=== PATIENT | male | born 1935 | race Caucasian/White ===

== ENCOUNTER 2016-08-01 06:53 | Emergency (ER) | payer MEDICARE, BC ==
[2016-08-01] MEDS ORDERED: Ketorolac INJ* 30 MG/ML 1 ML VIAL IV ONE (07:32)
[2016-08-01 08:39] LABS: Hematocrit 45 % (42-52); Hemoglobin 15.3 g/dl (14.0-18.0); Mean Corpuscular HGB Conc 34 g/dl (31-36); Mean Corpuscular Hemoglobin 31 pg (27-31); Mean Corpuscular Volume 91 fL (80-94); Mean Platelet Volume 7 um3 (7.4-10.4); Red Blood Count 4.93 10^6/ul (4.0-5.4); Red Cell Distribution Width 14 % (10.5-15); White Blood Count 7.8 10^3/ul (3.5-10.8)
[2016-08-01 09:00] LABS: Albumin 3.8 g/dL (3.2-5.2); BUN/Creatinine Ratio 17.1 (8-20); C Reactive Protein 7.72 mg/L (< 5.00); Calcium 8.9 mg/dL (8.6-10.3); EGFR Non-African American 63.7 (>60); Globulin 2.8 g/dL (2-4); Potassium 4.4 mmol/L (3.5-5.0); Total Bilirubin 0.7 mg/dL (0.2-1.0); Total Protein 6.6 g/dL (6.4-8.9); Uric Acid 6.7 mg/dL (4.4-7.6)
[2016-08-01 09:38] VITALS: BP 141/76
--- NOTE | 2016-08-01 12:55 | ED ---
Radu Fortune Auryana, scribed for Norman Dimas MD on 08/01/16 at 0732 . Lower Extremity - HPI Summary HPI Summary: 80 year old male presents with left foot pain starting at 02:00/03:00 this morning. Patient states that he awoke from sleep with intermittent sharp left foot pain. He also reports pain with palpation of the dorsal aspect of the foot. He denies any fever, chills. No history of trauma, heavy lifting, or fallen objects to left foot. [employer] ibuprofen - 02:00/03:00. PMHx is significant for hip replacement, shoulder surgery, L knee replacement, and BPH - with TURP x3. No history of gout. FHx is significant for colon CA. - History of Current Complaint Chief Complaint: EDExtremityLower Stated Complaint: LT FOOT PAIN Time Seen by Provider: 08/01/16 07:19 Hx Obtained From: Patient Mechanism Of Injury: Unknown Onset of Pain: Immediate Onset/Duration: Hours - starting at 02:00/ 03:00 Severity Initially: Severe Severity Currently: Severe Pain Intensity: 10 Pain Scale Used: 0-10 Numeric Timing: Constant Location: Is Discrete @ - left foot Character Of Pain: Sharp - with tender dorsal aspect of left foot Aggravating Factor(s): Other - touch - Allergies/Home Medications Allergies/Adverse Reactions: Allergies Allergy/AdvReac Type Severity Reaction Status Date / Time RAW OYSTERS Allergy Nausea And Uncoded 01/19/16 14:18 Vomiting PMH/Surg Hx/FS Hx/Imm Hx Endocrine/Hematology History: Denies: Hx Diabetes Cardiovascular History: Reports: Hx Hypertension Denies: Hx Congestive Heart Failure, Hx Hypercholesterolemia, Hx Pacemaker/ ICD, Hx Peripheral Vascular Disease Respiratory History: Denies: Hx Asthma GI History: Reports: Hx Gastroesophageal Reflux Disease, Hx Hiatal Hernia History: Reports: Other Problems/Disorders - BPH, TURP X2 Denies: Hx Dialysis, Hx Renal Disease Musculoskeletal History: Denies: Hx Arthritis, Hx Rheumatoid Arthritis, Hx Osteoporosis Sensory History: Reports: Hx Hearing Aid Denies: Hx Cataracts, Hx Contacts or Glasses, Hx Glaucoma Opthamlomology History: Denies: Hx Cataracts, Hx Contacts or Glasses, Hx Glaucoma Neurological History: Denies: Hx Headaches, Hx Seizures, Hx Transient Ischemic Attacks (TIA) Psychiatric History: Denies: Hx Anxiety, Hx Depression, Hx Panic Disorder - Surgical History Surgery Procedure, Year, and Place: LEFT KNEE. PROSTATE X 3,. RIGHT HIP REPLACEMENT SEPTEMBER 2012. GHASSAN CATARACT. RIGHT SHOULDER ARTHROSCOPIC SX DEC 2014 Hx Anesthesia Reactions: No - Immunization History Date of Tetanus Vaccine: unkown Infectious Disease History: No Infectious Disease History: Denies: History Other Infectious Disease, Traveled Outside the [place] in Last 30 Days - Family History Known Family History: Positive: Diabetes, Other - cancer - Social History Occupation: Retired Lives: Alone Alcohol Use: Weekly Alcohol Amount: 4-5/WEEK Hx Substance Use: No Substance Use Type: Reports: None Hx Tobacco Use: No Smoking Status (MU): Former Smoker Length of Time of Smoking/Using Tobacco: 20 YRS Have You Smoked in the Last Year: No Review of Systems Constitutional: Negative Negative: Fever, Chills Eyes: Negative ENT: Negative Cardiovascular: Negative Respiratory: Negative Gastrointestinal: Negative Genitourinary: Negative Positive: Arthralgia - left foot Skin: Negative Neurological: Negative Psychological: Normal All Other Systems Reviewed And Are Negative: Yes Physical Exam - Summary Physical Exam Summary: VITAL SIGNS: Reviewed. GENERAL: ~Patient is a well developed and nourished male who is lying comfortable in the stretcher. ~Patient is not in any acute respiratory distress. HEAD AND FACE: No signs of trauma. ~No ecchymosis, hematomas or skull depressions. No sinus tenderness. EYES: PERRLA, EOMI x 2, No injected conjunctiva, no nystagmus. EARS: Hearing grossly intact. Ear canals and tympanic membranes are within normal limits. MOUTH: Oropharynx within normal limits. NECK: Supple, trachea is midline, no adenopathy, no JVD, no carotid bruit, no c- spine tenderness, neck with full ROM. CHEST: Symmetric, no tenderness at palpation LUNGS: Clear to auscultation bilaterally. No wheezing or crackles. CVS: Regular rate and rhythm, S1 and S2 present, no murmurs or gallops appreciated. ABDOMEN: Soft, non-tender. No signs of distention. No rebound no guarding, and no masses palpated. Bowel sounds are normal. EXTREMITIES: FROM in all major joints, no cyanosis or clubbing. Good pulses. Dorsal aspect of the left foot - very tender on palpation. Unable to assess capillary refill due to onychomycosis. Bilateral 1+ edema at the left foot. NEURO: Alert and oriented x 3. No acute neurological deficits. Speech is normal and follows commands. SKIN: Dry and warm. erythema at the dorsal aspect of the left foot. Triage Information Reviewed: Yes Vital Signs On Initial Exam: Initial Vitals Temp Pulse Resp BP Pulse Ox 97.0 F 76 16 157/73 99 08/01/16 06:55 08/01/16 06:55 08/01/16 06:55 08/01/16 06:55 08/01/16 06:55 Vital Signs Reviewed: Yes Diagnostics - Vital Signs Vital Signs Temp Pulse Resp BP Pulse Ox 08/01/16 06:55 97.0 F 76 16 157/73 99 - Laboratory Lab Results: Lab Results 08/01/16 08/01/16 08/01/16 Range/Units 08:26 08:26 08:26 WBC 7.8 (3.5-10.8) 10^3/ul RBC 4.93 (4.0-5.4) 10^6/ul Hgb 15.3 (14.0-18.0) g/dl Hct 45 (42-52) % MCV 91 (80-94) fL MCH 31 (27-31) pg MCHC 34 (31-36) g/dl RDW 14 (10.5-15) % Plt Count 229 (150-450) 10^3/ul MPV 7 L (7.4-10.4) um3 Neut % (Auto) 65.0 (38-83) % Lymph % (Auto) 21.3 L (25-47) % [place] % (Auto) 11.1 H (1-9) % Eos % (Auto) 2.2 (0-6) % Baso % (Auto) 0.4 (0-2) % Absolute Neuts (auto) 5.1 (1.5-7.7) 10^3/ul Absolute Lymphs (auto) 1.7 (1.0-4.8) 10^3/ul Absolute Monos (auto) 0.9 H (0-0.8) 10^3/ul Absolute Eos (auto) 0.2 (0-0.6) 10^3/ul Absolute Basos (auto) 0 (0-0.2) 10^3/ul Absolute Nucleated RBC 0 10^3/ul Nucleated RBC % 0 Sodium 139 (133-145) mmol/L Potassium 4.4 (3.5-5.0) mmol/L Chloride 102 (101-111) mmol/L Carbon Dioxide 28 (22-32) mmol/L Anion Gap 9 (2-11) mmol/L BUN 19 (6-24) mg/dL Creatinine 1.11 (0.67-1.17) mg/dL Est GFR ( Amer) 82.0 (>60) Est GFR (Non-Af Amer) 63.7 (>60) BUN/Creatinine Ratio 17.1 (8-20) Glucose 107 H (70-100) mg/dL Lactic Acid 1.5 (0.5-2.0) mmol/L Uric Acid 6.7 (4.4-7.6) mg/dL Calcium 8.9 (8.6-10.3) mg/dL Total Bilirubin 0.70 (0.2-1.0) mg/dL AST 20 (13-39) U/L ALT 17 (7-52) U/L Alkaline Phosphatase 75 (34-104) U/L C-Reactive Protein 7.72 H (< 5.00) mg/L Total Protein 6.6 (6.4-8.9) g/dL Albumin 3.8 (3.2-5.2) g/dL Globulin 2.8 (2-4) g/dL Albumin/Globulin Ratio 1.4 (1-3) Result Diagrams: 08/01/16 08:26 08/01/16 08:26 Lab Statement: Any lab studies that have been ordered have been reviewed, and results considered in the medical decision making process. Re-Evaluation - Re-Evaluation First Eval Re-Evaluation Time: 09:10 - will discharge patient with proper management for symptoms Change: Improved Lower Extremity Course/Dx - Course Course Of Treatment: 80 year old male presents with left foot pain starting at 02:00/03:00 this morning. Patient states that he awoke from sleep with intermittent sharp left foot pain. He also reports pain with palpation of the dorsal aspect of the foot. He denies any fever, chills. No history of trauma, heavy lifting, or fallen objects to left foot. [employer] ibuprofen - 02:00/03:00. PMHx is significant for hip replacement, shoulder surgery, L knee replacement, and BPH - with TURP x3. No history of gout. FHx is significant for colon CA. Assessment/Plan: Test results WNL except for glucose 107 and CRP 7.72 . In ED course, patient was given Toradol and symptoms completely resolved. Offered XR and declined since he does not have an history of trauma. Therefore, believe patient has an acute gout v.s. mild cellulitis. Since the patient has severe onychomycosis, therefore the patient was given keflex and indocin. 80 year old male presents with left foot pain starting at 02:00/03:00 this morning. Patient states that he awoke from sleep with intermittent sharp left foot pain. He also reports pain with palpation of the dorsal aspect of the foot. He denies any fever, chills. No history of trauma, heavy lifting, or fallen objects to left foot. [employer] ibuprofen - 02:00/03:00. PMHx is significant for hip replacement, shoulder surgery, L knee replacement, and BPH - with TURP x3. No history of gout. FHx is significant for colon CA. Patient was advised to follow up with PCP within 2 days. He was advised to return to ED if he is unable to get an appointment with PCP or develops increased pain, fever, chills, or is unable to ambulate. He understands all of this. Patient is stable and A&O X3 - left ED ambulating without any limp. - Diagnoses Differential Diagnosis/HQI/PQRI: Positive: Cellulitis, Gout, Infection Provider Diagnoses: Gout, Cellulitis Discharge - Discharge Plan Condition: Stable Disposition: HOME Prescriptions: Cephalexin CAP* [Keflex CAP*] 500 mg PO TID #28 cap Indomethacin CAP* [Indocin CAP*] 50 mg PO TID PRN #30 cap PRN Reason: Pain Patient Education Materials: Gout (ED), Cellulitis (ED) Referrals: Bret Johnson MD [Primary Care Provider] - 3 Days The documentation as recorded by the Radu queen Auryana accurately reflects the service I personally performed and the decisions made by , Norman Dimas MD.
== END 2016-08-01 09:26 | disposition home or self-care (01) ==
LOC: ED 06:53
DX: L03.90 Cellulitis, unspecified (principal); M10.9 Gout, unspecified; M79.672 Pain in left foot; Z87.891 Personal history of nicotine dependence
CPT/HCPCS: 36415; 80053; 83605; 84550; 85025; 86140; 99282; J1885

== ENCOUNTER 2017-07-18 15:42 | Emergency (ER) | payer MEDICARE, BC, OTHER ==
[2017-07-18] MEDS ORDERED: Tetan/Diph/Pertus SYR(Tdap)* 0.5 ML SYR(BOOSTRIX) use SYR IM ONE (16:05)
--- NOTE | 2017-07-18 17:23 | ED ---
Laceration/Wound HPI - HPI Summary HPI Summary: Complains of superior head laceration status post walking into overhanging tree branch while mowing the lawn today. Denies LOC, neck pain, trauma to the face/ tongue/teeth/nose, dizziness, CUENCA, vision change, N/V. No anti-coag. Bleeding controlled. Tetanus unknown - History of Current Complaint Stated Complaint: HEAD LAC Time Seen by Provider: 07/18/17 16:43 Hx Obtained From: Patient, Family/Die Finisher Mechanism of Injury: Sharp/Blunt Trauma Aggravating: Nothing Alleviating: Nothing Onset Severity: Mild Current Severity: Mild Pain Intensity: 1 Pain Scale Used: 0-10 Numeric - Allergy/Home Medications Allergies/Adverse Reactions: Allergies Allergy/AdvReac Type Severity Reaction Status Date / Time RAW OYSTERS Allergy Nausea And Uncoded 07/18/17 15:56 Vomiting PMH/Surg Hx/FS Hx/Imm Hx Endocrine/Hematology History: Denies: Hx Diabetes Cardiovascular History: Reports: Hx Hypertension Denies: Hx Congestive Heart Failure, Hx Hypercholesterolemia, Hx Pacemaker/ ICD, Hx Peripheral Vascular Disease Respiratory History: Denies: Hx Asthma GI History: Reports: Hx Gastroesophageal Reflux Disease, Hx Hiatal Hernia History: Reports: Other Problems/Disorders - BPH, TURP X2 Denies: Hx Dialysis, Hx Renal Disease Musculoskeletal History: Denies: Hx Arthritis, Hx Rheumatoid Arthritis, Hx Osteoporosis Sensory History: Reports: Hx Hearing Aid Denies: Hx Cataracts, Hx Contacts or Glasses, Hx Glaucoma Opthamlomology History: Denies: Hx Cataracts, Hx Contacts or Glasses, Hx Glaucoma Neurological History: Denies: Hx Headaches, Hx Seizures, Hx Transient Ischemic Attacks (TIA) Psychiatric History: Denies: Hx Anxiety, Hx Depression, Hx Panic Disorder - Surgical History Surgery Procedure, Year, and Place: LEFT KNEE. PROSTATE X 3,. RIGHT HIP REPLACEMENT SEPTEMBER 2012. GHASSAN CATARACT. RIGHT SHOULDER ARTHROSCOPIC SX DEC 2014 Hx Anesthesia Reactions: No - Immunization History Date of Tetanus Vaccine: unkown Infectious Disease History: No Infectious Disease History: Denies: History Other Infectious Disease, Traveled Outside the [place] in Last 30 Days - Family History Known Family History: Positive: Diabetes, Other - cancer - Social History Alcohol Use: Weekly Alcohol Amount: 4-5/WEEK Hx Substance Use: No Substance Use Type: Reports: None Hx Tobacco Use: No Smoking Status (MU): Former Smoker Length of Time of Smoking/Using Tobacco: 20 YRS Have You Smoked in the Last Year: No Review of Systems Constitutional: Negative Eyes: Negative ENT: Negative Cardiovascular: Negative Respiratory: Negative Gastrointestinal: Negative Genitourinary: Negative Musculoskeletal: Negative Skin: Negative Neurological: Negative Psychological: Normal All Other Systems Reviewed And Are Negative: Yes Physical Exam - Summary Physical Exam Summary: 6 cm x 1 cm laceration on superior head posteriorly. No trauma, ecchymosis, swelling, deformity to face, nose, teeth, tongue, neck noted. Neck full range of motion. Jaw full range of motion. Neuro exam normal. Triage Information Reviewed: Yes Vital Signs On Initial Exam: Initial Vitals Temp Pulse Resp BP Pulse Ox 98.1 F 91 18 140/101 93 07/18/17 15:53 07/18/17 15:53 07/18/17 15:53 07/18/17 15:53 07/18/17 15:53 Vital Signs Reviewed: Yes Appearance: Positive: Well-Appearing Skin: Positive: Warm Head/Face: Positive: Normal Head/Face Inspection Eyes: Positive: Normal Neck: Positive: Supple Respiratory/Lung Sounds: Positive: Clear to Auscultation Cardiovascular: Positive: Normal Abdomen Description: Positive: Nontender Musculoskeletal: Positive: Normal Neurological: Positive: Normal Psychiatric: Positive: Normal AVPU Assessment: Alert - Jazmine Coma Scale Best Eye Response: 4 - Spontaneous Best Motor Response: 6 - Obeys Commands Best Verbal Response: 5 - Oriented Coma Scale Total: 15 Procedures - Laceration/Wound Repair 1 Location: head Description: Linear Length, Depth and Shape: 6cm x 1cm, linear Betadine Prep?: Yes Irrigated w/ Saline (ccs): 50 - saline +betadine Laceration/Wound Explored: clean Closure: Single Layer, [place] #__ - 8 Debridement: minimal Layer Closure?: No Diagnostics - Vital Signs Vital Signs Temp Pulse Resp BP Pulse Ox 07/18/17 15:53 98.1 F 91 18 140/101 93 - Laboratory Lab Statement: Any lab studies that have been ordered have been reviewed, and results considered in the medical decision making process. Laceration Repair Course/Dx - Course Course Of Treatment: LAC, 8 levi, out in 10 days, prophylactic antibiotics. Non-immunocompromised. pt refused tetanus, states he has appt at pcp for same right after todays visit to ed - Clinical Impression Provider Diagnoses: Laceration Discharge - Sign-Out/Discharge Documenting (check all that apply): Discharge/Admit/Transfer - Discharge Plan Condition: Stable Disposition: HOME Prescriptions: Cephalexin CAP* [Keflex CAP*] 500 mg PO TID 7 Days #21 cap Cephalexin CAP* [Keflex CAP*] 500 mg PO TID 7 Days #21 cap Patient Education Materials: Laceration (ED), Staple Care (ED) Referrals: Bret Johnson MD [Primary Care Provider] - Additional Instructions: Levi out in 10 days. May wash wound with warm running water and soap. Do not submerge underwater. Return to the ED for any new or worsening symptoms - Billing Disposition and Condition Condition: STABLE Disposition: HOME
[2017-07-18 18:11] VITALS: BP 138/82
== END 2017-07-18 18:09 | disposition home or self-care (01) ==
LOC: ED 15:42
DX: S01.01XA Laceration without foreign body of scalp, initial encounter (principal); W22.8XXA Striking against or struck by other objects, initial encounter; Y93.H9 Activity, other involving exterior property and land maintenance, building and construction; Y92.096 Garden or yard of other non-institutional residence as the place of occurrence of the external cause; I10 Essential (primary) hypertension; K21.9 Gastro-esophageal reflux disease without esophagitis; K44.9 Diaphragmatic hernia without obstruction or gangrene; N40.0 Benign prostatic hyperplasia without lower urinary tract symptoms; Z96.641 Presence of right artificial hip joint; Z87.891 Personal history of nicotine dependence
CPT/HCPCS: 12002; 99282

== ENCOUNTER 2017-08-30 15:29 | Emergency (ER) | payer MEDICARE, BC ==
[2017-08-30 15:40] VITALS: BP 152/96
--- NOTE | 2017-08-30 18:28 | UC ---
Diomedes Fortune Jade, scribed for Kameron Mccall MD on 08/30/17 at 1625 . Ear Complaint HPI - HPI Summary HPI Summary: Pt is an 81 y/o male who presents to [facility] c/o ear area pain. He states that he noticed the pain this morning that he initially thought was TMJ, and that his left ear area is swollen. There is not constant pain, but 5/10 pain with palpation that is worsening. Pt denies any sore throat or ear blockage. Pt has hearing aids. - History of Current Complaint Chief Complaint: UCSkin Stated Complaint: SKIN COMPLAINT Time Seen by Provider: 08/30/17 16:10 Hx Obtained From: Patient Onset/Duration: Sudden Onset, Lasting Hours - Today, Worse Since Severity Currently: Moderate Pain Intensity: 5 Pain Scale Used: 0-10 Numeric Aggravating Factors: Other - Pressing Alleviating Factors: Nothing Associated Signs/Symptoms: Negative: Hearing Loss, Trauma to Ear - Allergies/Home Medications Allergies/Adverse Reactions: Allergies Allergy/AdvReac Type Severity Reaction Status Date / Time RAW OYSTERS Allergy Nausea And Uncoded 08/30/17 15:40 Vomiting PMH/Surg Hx/FS Hx/Imm Hx Endocrine History: Other - hypercholesterolemia Other Endocrine History: . Cardiovascular History: Hypertension GI/ History: Gastroesophageal Reflux, Other - Colon polyps Other GI/ History: . - Surgical History Surgical History: Yes Surgery Procedure, Year, and Place: LEFT KNEE. PROSTATE X 3,. RIGHT HIP REPLACEMENT SEPTEMBER 2012. GHASSAN CATARACT. RIGHT SHOULDER ARTHROSCOPIC SX DEC 2014 - Family History Known Family History: Positive: Diabetes, Other - colon cancer - Social History Alcohol Use: Weekly Alcohol Amount: 4-5/WEEK Substance Use Type: None Smoking Status (MU): Former Smoker Length of Time of Smoking/Using Tobacco: 20 YRS Have You Smoked in the Last Year: No When Did the Patient Quit Smoking/Using Tobacco: 35 YRS AGO Review of Systems Constitutional: Negative - Fever ENT: Negative - Sore throat, ear blockage, Other - Pain and swelling surrounding left ear All Other Systems Reviewed And Are Negative: Yes Physical Exam - Summary Physical Exam Summary: General: well-appearing, no pain distress Skin: warm, color reflects adequate perfusion, dry. No erythema of left jaw. Head: normal Eyes: EOMI, NUBIA ENT: normal. Partial plate in teeth. No obvious decay or swelling of teeth. TM normal. Neck: supple, nontender Respiratory: CTA, breath sounds present Cardiovascular: RRR Abdomen: soft, nontender Bowel: present Musculoskeletal: strength/ROM intact. Tenderness to palpation and swelling of angle of left jaw. Neurological: sensory/motor intact, A&O x3 Psychological: affect/mood appropriate Triage Information Reviewed: Yes Vital Signs: Initial Vital Signs Temp 98.5 F 08/30/17 15:36 Pulse 82 08/30/17 15:36 Resp 18 08/30/17 15:36 BP 152/96 08/30/17 15:36 Pulse Ox 98 08/30/17 15:36 Vital Signs Reviewed: Yes Ear Complaint Course/Dx - Course Course Of Treatment: Medications reviewed. Allergies noted. BP noted and advised to follow up with PCP. DISCUSSED TREATMENT WITH THE PATIENT AND THE NEED FOR REEVAL IF WORSE. - Differential Dx/Diagnosis Provider Diagnoses: LEFT Parotid duct obstructioN/sialoadentitis. HTN Discharge - Sign-Out/Discharge Documenting (check all that apply): Discharge/Admit/Transfer - Discharge - Discharge Plan Condition: Stable Disposition: HOME Prescriptions: Amoxicillin/Clavulanate TAB* [Augmentin TAB 875*] 875 mg PO BID #20 tab Patient Education Materials: Parotid Duct Obstruction (ED), Sialoadenitis (ED) Referrals: [facility] [Provider Group] Bret Johnson MD [Primary Care Provider] - Asher Hammond MD [Medical Doctor] - Additional Instructions: FOLLOW UP WITH YOUR PRIMARY CARE DOCTOR OR ENT. GET RECHECKED FOR ANY WORSENING OF YOUR CONDITION OR QUESTIONS OR CONCERNS. - Billing Disposition and Condition Condition: STABLE Disposition: Home The documentation as recorded by the Diomedes queen Jade accurately reflects the service I personally performed and the decisions made by me, Kameron Mccall MD.
== END 2017-08-30 16:33 | disposition home or self-care (01) ==
LOC: UCEAST 15:29
DX: K11.20 Sialoadenitis, unspecified (principal); K86.89 Other specified diseases of pancreas; I10 Essential (primary) hypertension; Z87.891 Personal history of nicotine dependence; K21.9 Gastro-esophageal reflux disease without esophagitis; E78.00 Pure hypercholesterolemia, unspecified
CPT/HCPCS: 99212; G0463

== ENCOUNTER → 2018-09-08 01:14 | Emergency (ER) | payer MEDICARE, BC ==
[~2018-09-08 01:14] MED LIST: Iohexol 300* (CONTRAST) 10 ML SDV IV ONE; Morphine 4 MG/ML VIAL (1 ml) 4 MG/ML VIAL IV ONE; NS 0.9% 1000 ML** 1,000 ML IV ONE; Ondansetron INJ* 2 MG/ML VIAL IV ONE
--- OUTSIDE RECORDS SUMMARY | 2018-09-08 01:35 | XMS REPORT | Continuity of Care Document ---
:1935 External Reference #:[id number] Author Name Pascual Dia, OD Address [address] [place] [address] Care Team Providers Name Role Phone Alex SAWYER, Bret Sanders Care Team Information Residential Substance Abuse Counselor Unavailable Bret Johnson MD Primary Care Physician Unavailable Payers Date Identification Numbers Payment Provider Subscriber Policy Number: [id number] Medicare [place] [facility] PayID: [id number] [address] [place] [address] Policy Number: [id number] [facility] PayID: [id number] [address] [place] [address] Problems Active Problems Provider Date Tear film insufficiency Ravinder Nelson M.D. 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 Onset: 03/24/2016 Nonexudative age-related macular degeneration Ravinder Nelson M.D. Onset: Presence of intraocular lens Ravinder Nelson M.D. Onset: 09/03/2015 Retinal drusen Ravinder Nelson M.D. Onset: 09/03/2015 Primary open-angle glaucoma, mild stage Ravinder Nelson M.D. Onset: 2014 Lens Replaced By Other Means Pascual Valladares O.D. Onset: 10/07/2014 Status Post Surgery Ravinder Nelson M.D. Onset: 09/24/2014 Nuclear senile cataract Ravinder Nelson M.D. Onset: 08/22/2014 Open-angle glaucoma Ravinder Nelson M.D. Onset: 08/22/2014 Family History Date Family Member(s) Observation Comments General Cancer General Heart Disease General Grandparent Father Cancer Mother Massive Cerebral Heme. Social History Type Date Description Comments Sex Unknown ETOH Use Currently consumes alcohol Tobacco Use Start: Unknown End: Unknown Patient is a former smoker Smoking Status Reviewed: 08/17/18 Patient is a former smoker Allergies, Adverse Reactions, Alerts Active Allergies Reaction Severity Comments Date NKDA 08/22/2014 Oysters 08/22/2014 Medications Active Medications SIG Qnty Indications Ordering Provider Date Latanoprost 1 drops both 7.5ml Pascual Dia, OD 07/23/2018 0.005% Solution eyes every night Timolol Maleate one drop twice 15ml Pascual Dia, OD 05/30/2018 0.5% a day left eye Solution Preservision Areds 1 by mouth H35.3131 Ravinder Nelson, 03/24/2016 Tablets twice a day M.D. Mens Multi Vitamin & Unknown Mineral Formula Tablets Triamterene/Hydrochloro Unknown thiazide 50-25mg Capsules Omeprazole Unknown 40mg Capsules DR Multi Vitamin Daily Unknown Tablets Glucosamine Chondroitin Unknown Complex Capsules Co-Enzyme Q-10 Unknown 30mg Capsules Aspir-81 once per day by Unknown 81mg Tablets DR mouth History Medications Timolol Maleate 1 drop left eye 30ml Ravinder Nelson, 05/11/2017 - 0.5% twice a day M.D. 05/30/2018 Solution Timolol Maleate 1 drops left 15ml H40.1131 Ravinder Nelson, 04/24/2017 - 0.5% eye twice a day M.D. 05/11/2017 Solution Latanoprost instill 1 drop 3units Ravinder Nelson, 05/26/2015 - 0.005% into both eyes M.D. 07/23/2018 Solution nightly Timolol Maleate 1 drops both 90units Ravinder Nelson, 10/01/2014 - 0.5% eyes twice a M.D. 10/28/2014 Solution day Please Disp A 90 Day Supply With 3 Refills Timolol Maleate 1 drops both 5ml Ravinder Nelson, 10/01/2014 - 0.5% eyes twice a M.D. 10/28/2014 Solution day Vigamox 1 drop drops 3ml Ravinder Nelson, 08/25/2014 - 0.5% Solution left eye four M.D. 10/07/2014 times a day Ketorolac 1 drops left 10ml Ravinder Nelson, 08/25/2014 - Tromethamine eye twice a day M.D. 10/28/2014 0.5% Solution Pred Forte 1 drops left 10ml Ravinder Nelson, 08/25/2014 - 1% eye four times M.D. 10/28/2014 Suspension a day Vital Signs Date Vital Result Comment 05/17/2018 9:56am Intraocular Pressure Right Eye 19 mmHg Intraocular Pressure Left Eye 18 mmHg 04/27/2018 2:22pm Intraocular Pressure Right Eye 15 mmHg Intraocular Pressure Left Eye 15 mmHg 12/25/2017 9:03am Intraocular Pressure Right Eye 15 mmHg Intraocular Pressure Left Eye 14 mmHg 09/11/2017 8:53am Intraocular Pressure Right Eye 16 mmHg Intraocular Pressure Left Eye 16 mmHg 05/11/2017 8:41am Intraocular Pressure Right Eye 17 mmHg Intraocular Pressure Left Eye 16 mmHg 04/24/2017 1:54pm Intraocular Pressure Right Eye 17 mmHg Intraocular Pressure Left Eye 23 mmHg 01/12/2017 1:30pm Intraocular Pressure Right Eye 15 mmHg Intraocular Pressure Left Eye 18 mmHg 09/22/2016 8:12am Intraocular Pressure Right Eye 16 mmHg Intraocular Pressure Left Eye 16 mmHg 06/23/2016 8:15am Intraocular Pressure Right Eye 18 mmHg Intraocular Pressure Left Eye 18 mmHg 03/24/2016 9:18am Intraocular Pressure Right Eye 17 mmHg Intraocular Pressure Left Eye 17 mmHg 12/09/2015 3:28pm Intraocular Pressure Right Eye 16 mmHg Intraocular Pressure Left Eye 16 mmHg 09/03/2015 8:17am Intraocular Pressure Right Eye 17 mmHg Intraocular Pressure Left Eye 18 mmHg 05/04/2015 8:00am Intraocular Pressure Right Eye 18 mmHg Intraocular Pressure Left Eye 17 mmHg 01/30/2015 8:56am Intraocular Pressure Right Eye 19 mmHg Intraocular Pressure Left Eye 20 mmHg 10/28/2014 11:08am Intraocular Pressure Right Eye 18 mmHg Intraocular Pressure Left Eye 19 mmHg 10/07/2014 9:58am Intraocular Pressure Right Eye 16 mmHg Intraocular Pressure Left Eye 21 mmHg 10/01/2014 9:00am Intraocular Pressure Right Eye 16 mmHg Intraocular Pressure Left Eye 31 mmHg 09/26/2014 2:07pm Intraocular Pressure Right Eye 17 mmHg Intraocular Pressure Left Eye 21 mmHg 09/24/2014 9:10am Intraocular Pressure Right Eye 33 mmHg 08/22/2014 8:40am Intraocular Pressure Right Eye 23 mmHg Intraocular Pressure Left Eye 24 mmHg Cornea Thickness Left Eye 610 m Cornea Thickness Right Eye 590 m Pachymetry adjusted IOP Right Eye -4 Pachymetry adjusted IOP Left Eye -3 Procedures Date Code Description Status 05/10/2018 93968 Remove Secondary Cataract, Laser (Yag) Completed 04/27/2018 95002 Oct, Optic Nerve Completed 04/27/2018 05325 Eye Exam Est Intermediate Completed 12/25/2017 93516 Visual Field Exam Extended, Unilateral Or Bilateral Completed 12/25/2017 74617 Eye Exam Est Intermediate Completed 09/11/2017 08749 Fundus Photography W/Interpretation & Report Completed 09/11/2017 01369 Eye Exam Est Intermediate Completed 04/24/2017 86195 Eye Exam Est Intermediate Completed 04/24/2017 12800 Oct, Optic Nerve Completed 01/12/2017 79264 Oct Retina Completed 01/12/2017 95468 Visual Field Exam Extended, Unilateral Or Bilateral Completed 01/12/2017 29422 Eye Exam Est Intermediate Completed 09/22/2016 21221 Fundus Photography W/Interpretation & Report Completed 09/22/2016 56157 Ophthalmoscopy Subsequent Completed 09/22/2016 00576 Eye Exam Est Comprehensive Completed 06/23/2016 66847 Eye Exam Est Intermediate Completed 03/24/2016 57141 Eye Exam Est Intermediate Completed 03/24/2016 72811 Oct, Optic Nerve Completed 12/09/2015 78896 Oct Retina Completed 12/09/2015 35069 Visual Field Exam Extended, Unilateral Or Bilateral Completed 12/09/2015 33442 Eye Exam Est Intermediate Completed 09/03/2015 47801 Fundus Photography W/Interpretation & Report Completed 09/03/2015 87227 Eye Exam Est Comprehensive Completed 05/04/2015 56423 Eye Exam Est Intermediate Completed 01/30/2015 70522 Eye Exam Est Intermediate Completed 01/30/2015 25515 Visual Field Exam Extended, Unilateral Or Bilateral Completed 01/30/2015 51338 Oct, Optic Nerve Completed 09/30/2014 87817 Extracapsular Cataract Extraction W/Intraocular Lens Completed 09/23/2014 55090 Extracapsular Cataract Extraction W/Intraocular Lens Completed 08/22/2014 15314 Fundus Photography W/Interpretation & Report Completed 08/22/2014 87276 Ophthalmic Biometry By Partial Coherence Interferometry Completed W/Intra 08/22/2014 96757 Gonioscopy Completed 08/22/2014 30748 Eye Exam New Comprehensive Completed 08/22/2014 55394 Corneal Pachymetry, Unilateral/Bilateral Completed Encounters Type Date Location Provider Dx Diagnosis Office Visit 05/11/2017 Main Office Ravinder Nelson, Z96.1 Presence of 8:45a M.D. intraocular lens H40.1131 Primary open-angle glaucoma, bilateral, mild stage H35.3131 Nexdtve age-related mclr degn, bilateral, early dry stage Plan of Treatment 08/17/2018 - Pascual Dia ODH40.1131 Primary open-angle glaucoma, bilateral, mild stageFollow up:3 MOS vf, SOONER PRN
--- NOTE | 2018-09-08 03:49 | ED ---
Adult Trauma - HPI Summary HPI Summary: This pt is an 82 y/[facility]o left sided chest pain s/p fall at 23:30 on 09/07/18. [place]. Denies LOC. Denies back pain, abd pain, headache, SOB. Per , pt vomited after driving back [place] from the [place]. Pt takes aspirin. Denies any other anticoagulants. - History of Current Complaint Chief Complaint: EDChestWallPain Stated Complaint: FALL PER PT Time Seen by Provider: 09/08/18 03:44 Hx Obtained From: Patient Mechanism of Injury: Fall Loss of Consciousness: no loss of consciousness Onset/Duration: Started Hours Ago, Still Present Onset of Pain: Immediate Current Severity: Severe Pain Intensity: 10 Pain Scale Used: 0-10 Numeric Location: Chest - left sided Aggravating Factor(s): Palpation Alleviating Factor(s): Rest Associated Signs & Symptoms: Positive: Chest Pain, Nausea/Vomiting - vomiting. Negative: SOB, Abdominal Pain, Fever, Loss of Consciousness, Other: - NEGATIVE: headache, back pain - Allergy/Home Medications Allergies/Adverse Reactions: Allergies Allergy/AdvReac Type Severity Reaction Status Date / Time RAW OYSTERS Allergy Nausea And Uncoded 08/08/18 13:46 Vomiting PMH/Surg Hx/FS Hx/Imm Hx Endocrine/Hematology History: Denies: Hx Diabetes Cardiovascular History: Reports: Hx Hypertension Denies: Hx Congestive Heart Failure, Hx Hypercholesterolemia, Hx Pacemaker/ ICD, Hx Peripheral Vascular Disease Respiratory History: Denies: Hx Asthma GI History: Reports: Hx Gastroesophageal Reflux Disease, Hx Hiatal Hernia History: Reports: Other Problems/Disorders - BPH, TURP X2 Denies: Hx Dialysis, Hx Renal Disease Musculoskeletal History: Denies: Hx Arthritis, Hx Rheumatoid Arthritis, Hx Osteoporosis Sensory History: Reports: Hx Hearing Aid Denies: Hx Cataracts, Hx Contacts or Glasses, Hx Glaucoma Opthamlomology History: Denies: Hx Cataracts, Hx Contacts or Glasses, Hx Glaucoma Neurological History: Denies: Hx Headaches, Hx Seizures, Hx Transient Ischemic Attacks (TIA) Psychiatric History: Denies: Hx Anxiety, Hx Depression, Hx Panic Disorder - Surgical History Surgery Procedure, Year, and Place: LEFT KNEE. PROSTATE X 3,. RIGHT HIP REPLACEMENT SEPTEMBER 2012. [place] CATARACT. RIGHT SHOULDER ARTHROSCOPIC SX DEC 2014 Hx Anesthesia Reactions: No - Immunization History Date of Tetanus Vaccine: unkown Infectious Disease History: No Infectious Disease History: Denies: History Other Infectious Disease, Traveled Outside the [place] in Last 30 Days - Family History Known Family History: Positive: Diabetes, Other - colon cancer - Social History Alcohol Use: Weekly Alcohol Amount: 4-5/WEEK Hx Substance Use: No Substance Use Type: Reports: None Hx Tobacco Use: No Smoking Status (MU): Former Smoker Length of Time of Smoking/Using Tobacco: 20 YRS Have You Smoked in the Last Year: No Review of Systems Negative: Fever Positive: Chest Pain Negative: Shortness Of Breath Positive: Vomiting. Negative: Abdominal Pain Negative: Other - NEGATIVE: back pain Negative: Headache All Other Systems Reviewed And Are Negative: Yes Physical Exam - Summary Physical Exam Summary: VITAL SIGNS: Reviewed. GENERAL: Patient is a well-developed and nourished male who is lying comfortable in the stretcher. Patient is not in any acute respiratory distress. HEAD AND FACE: No signs of trauma. No ecchymosis, hematomas or skull depressions. No sinus tenderness. EYES: PERRLA, EOMI x 2, No injected conjunctiva, no nystagmus. EARS: Hearing grossly intact. Ear canals and tympanic membranes are within normal limits. MOUTH: Oropharynx within normal limits. NECK: Supple, trachea is midline, no adenopathy, no JVD, no carotid bruit, no c- spine tenderness, neck with full ROM. CHEST: Symmetric, tenderness over the left rib cage LUNGS: Clear to auscultation bilaterally. No wheezing or crackles. CVS: Regular rate and rhythm, S1 and S2 present, no murmurs or gallops appreciated. ABDOMEN: Soft, tenderness in the LUQ and over the left rib cage. No signs of distention. No rebound no guarding, and no masses palpated. Bowel sounds are normal. EXTREMITIES: FROM in all major joints, no edema, no cyanosis or clubbing. NEURO: Alert and oriented x 3. No acute neurological deficits. Speech is normal and follows commands. SKIN: Dry and warm Triage Information Reviewed: Yes Vital Signs On Initial Exam: Initial Vitals Temp Pulse Resp BP Pulse Ox 98.1 F 94 20 144/83 92 09/08/18 01:18 09/08/18 01:18 09/08/18 01:18 09/08/18 01:18 09/08/18 01:18 Vital Signs Reviewed: Yes Diagnostics - Vital Signs Vital Signs Temp Pulse Resp BP Pulse Ox 09/08/18 03:38 102 20 96 09/08/18 01:18 98.1 F 94 20 144/83 92 - Laboratory Result Diagrams: 09/08/18 04:08 09/08/18 04:08 Lab Statement: Any lab studies that have been ordered have been reviewed, and results considered in the medical decision making process. Adult Trauma Course/Dx - Course Assessment/Plan: Pt is an 82 y/o male presenting to [facility] c/o left sided chest pain s/p fall at 23:30 on 09/07/18. Pt reports [place] when he [place]. Denies LOC. Denies back pain, abd pain, headache , SOB. Per , pt vomited after driving back home from the cemetery. Pt takes aspirin. Denies any other anticoagulants. Blood work was obtained. In the ED course the pt was given IV fluids, morphine, zofran. Pt will be signed out to Dr. Valle pending CT chest/abdomen/pelvis. - Diagnoses Provider Diagnoses: Fall Discharge - Sign-Out/Discharge Documenting (check all that apply): Sign-Out Patient Signing out patient TO: Cash Valle - pending CT chest/abd/pelvis Patient Received Moderate/Deep Sedation with Procedure: No - Discharge Plan Condition: Stable Referrals: Bret Johnson MD [Primary Care Provider] - - Attestation Statements Document Initiated by Scribe: Yes Documenting Scribe: Kendra Cornejo Provider For Whom Scribe is Documenting (Include Credential): Delfin Cisneros MD Scribe Attestation: Kendra Fortune, scribed for Delfin Cisneros MD on 09/08/18 at 0657. Status of Scribe Document: Ready
[2018-09-08 04:15] LABS: ABS Lymphocytes 0.9 10^3/ul (1.0-4.8); ABS Monocytes 0.4 10^3/ul (0-0.8); Eosinophil % 0.1 %; Hematocrit 46 % (42-52); Hemoglobin 15.9 g/dL (14.0-18.0); Lymphocyte % 9.3 %; Mean Corpuscular HGB Conc 35 g/dL (31-36); Mean Corpuscular Hemoglobin 33 pg (27-31); Mean Corpuscular Volume 94 fL (80-94); Mean Platelet Volume 6.7 fL (7.4-10.4); Nucleated Red Blood Cells % 0.1; Platelet Count 256 10^3/uL (150-450); Red Blood Count 4.88 10^6 /uL (4.18-5.48); Red Cell Distribution Width 14 % (10-15); White Blood Count 9.3 10^3/uL (3.5-10.8)
[2018-09-08 04:23] LABS: Activated Partial Thrombo Time 30.4 seconds (26.0-38.0); INR 1.03 (0.82-1.09)
[2018-09-08 04:33] LABS: ALT 17 U/L (7-52); AST 18 U/L (13-39); Albumin/Globulin Ratio 1.4 (1-3); Alkaline Phosphatase 72 U/L (34-104); Amylase 35 U/L (29-103); Anion Gap 13 mmol/L (2-11); BUN/Creatinine Ratio 21.7 (8-20); Blood Urea Nitrogen 20 mg/dL (6-24); CO2 Carbon Dioxide 22 mmol/L (22-32); Calcium 9.2 mg/dL (8.6-10.3); Chloride 106 mmol/L (101-111); EGFR African American 95.3 (>60); EGFR Non-African American 78.8 (>60); Globulin 2.8 g/dL (2-4); Glucose 147 mg/dL (70-100); Potassium 3.7 mmol/L (3.5-5.0); Sodium 141 mmol/L (135-145); Total Protein 6.8 g/dL (6.4-8.9)
--- NOTE | 2018-09-08 07:15 | ED ---
Progress - Progress Note Progress Note: This patient is a sign-out from Dr. Delfin Cisneros to Dr. Cash Valle at shift change on 09/08/[address] C/A/P. CT chest interpreted by radiologist reveals: No acute intrathoracic pathology. Dr. Valle has reviewed this radiology report. CT A/P interpreted by radiology reveals: No acute intra-abdominal pathology. Dr. Valle has reviewed this radiology report. Re-Evaluation - Re-Evaluation First Eval Re-Evaluation Time: 07:54 Comment: Discussed results with patient. Patient will be discharged with dx of fall and chest contusion. Patient understands and agrees with this plan. Course/Dx - Course Course Of Treatment: This patient is a sign-out from Dr. Delfin Cisneros to Dr. Cash Valle at shift change on 09/08/[address] C/A/P. [address] chest reveals no acute intrathoracic pathology. CT A/P reveals no acute intra- abdominal pathology. Patient will be discharged with dx of fall and chest contusion. Patient understands and agrees with this plan. - Diagnoses Provider Diagnoses: Fall, Chest wall contusion Discharge - Sign-Out/Discharge Documenting (check all that apply): Patient Departure - Discharge Patient Received Moderate/Deep Sedation with Procedure: No - Discharge Plan Condition: Stable Disposition: HOME Patient Education Materials: Fall Prevention (ED) Referrals: Bret Johnson MD [Primary Care Provider] - 3 Days Additional Instructions: Follow up with your primary care provider in three days. RETURN TO THE ER FOR WORSENING OR CHANGING SYMPTOMS. - Billing Disposition and Condition Condition: STABLE Disposition: Home - Attestation Statements Document Initiated by Ren: Yes Documenting Scribe: Rk Gupta Provider For Whom Ren is Documenting (Include Credential): Cash Valle MD Scribe Attestation: Rk Fortune, scribed for Cash Valle MD on 09/08/18 at 1850. Scribe Documentation Reviewed: Yes Provider Attestation: The documentation as recorded by the Rk queen accurately reflects the service I personally performed and the decisions made by me, Cash Valle MD Status of Scribe Document: Viewed
[2018-09-08 08:00] VITALS: BP 167/102
== END | disposition home or self-care (01) ==
LOC: ED 01:14
DX: S20.219A Contusion of unspecified front wall of thorax, initial encounter (principal); Z79.82 Long term (current) use of aspirin; W18.30XA Fall on same level, unspecified, initial encounter; Z87.891 Personal history of nicotine dependence
CPT/HCPCS: 36415; 71260; 74177; 80053; 82150; 83690; 85025; 85610; 85730; 96374; 96375; 99283; J2270; J2405; Q9967

== ENCOUNTER 2018-12-12 21:50 | Emergency (ER) | payer MEDICARE, BC ==
[2018-12-12] MEDS ORDERED: Ondansetron ODT TAB* 4 MG SL ONE (21:56)
--- NOTE | 2018-12-12 22:01 | UC ---
Abdominal Pain Male HPI - HPI Summary HPI Summary: 82 yo male presents with abdominal pain and vomiting. He is accompanied by his female friend who is his information management specialist most of the time as pt lives alone. She provides most of the history. She tells me that they had choir practice tonight and normally pt is always early, but this evening pt was late which was unusual. He told his friend that he was very nauseous. About 1 hour later he left practice and starting vomiting. He vomited 3-4 times and then developed pain in his RUQ - he states this is due to vomiting. Someone in the choir called EMS and when they arrived pt was joking with them and stated he was feeling well and signed papers that he did not want to go to ER. His friend was bringing him home when pt started vomiting again - prompting their visit to the . Pt denies headache, dizziness, SOB, chest pain, dysuria, diarrhea, or recent illness. No abdominal surgical hx - History of Current Complaint Stated Complaint: CHEST PAIN Time Seen by Provider: 12/12/18 21:56 Hx Obtained From: Patient Onset/Duration: Sudden Onset Severity Initially: Moderate Severity Currently: Moderate Pain Intensity: 5 Pain Scale Used: 0-10 Numeric - Allergies/Home Medications Allergies/Adverse Reactions: Allergies Allergy/AdvReac Type Severity Reaction Status Date / Time RAW OYSTERS Allergy Nausea And Uncoded 08/08/18 13:46 Vomiting PMH/Surg Hx/FS Hx/Imm Hx Cardiovascular History: Hypertension - Surgical History Surgical History: Yes Surgery Procedure, Year, and Place: LEFT KNEE. PROSTATE X 3,. RIGHT HIP REPLACEMENT SEPTEMBER 2012. GHASSAN CATARACT. RIGHT SHOULDER ARTHROSCOPIC SX DEC 2014 - Family History Known Family History: Positive: Diabetes, Other - colon cancer - Social History Lives: Alone Alcohol Use: Weekly Alcohol Amount: 4-5/WEEK Substance Use Type: None Smoking Status (MU): Former Smoker Length of Time of Smoking/Using Tobacco: 20 YRS Have You Smoked in the Last Year: No When Did the Patient Quit Smoking/Using Tobacco: 35 YRS AGO Review of Systems All Other Systems Reviewed And Are Negative: No Constitutional: Positive: Negative Skin: Positive: Negative Respiratory: Positive: Negative Cardiovascular: Positive: Negative Gastrointestinal: Positive: Abdominal Pain, Vomiting, Nausea Genitourinary: Positive: Negative Neurological: Positive: Negative Psychological: Positive: Negative Physical Exam - Summary Physical Exam Summary: GENERAL: Mild pain distress as rest. Vomiting periodically SKIN: No rashes, sores, lesions, or open wounds. NECK: Supple. Nontender. No lymphadenopathy. CHEST: CTAB. No r/r/w. No accessory muscle use. Breathing comfortably and in no distress. CV: RRR. Pulses intact. Cap refill <2seconds ABDOMEN: Severe RUQ TTP. No CVA tenderness. Bowel sounds present NEURO: Alert. PSYCH: Age appropriate behavior. Triage Information Reviewed: Yes Vital Signs: Vital Signs: Temp Pulse Resp BP Pulse Ox 97.6 F 87 18 113/82 94 12/12/18 22:01 12/12/18 22:01 12/12/18 22:01 12/12/18 22:01 12/12/18 22:01 Vital Signs Reviewed: Yes Abd Pain Male Course/Dx - Course Course Of Treatment: EKG - NSR 77bpm. No STEMI as read by Dr. Cordova. Discussed with pt that I cannot appropriately evaluate his abdominal pain in the urgent care. He was given ODT zofran 4mg and continued to vomit. Discussed further eval in the ED for his abdominal pain and he was agreeable to this. IV established and NS started. He was given another 4mg zofran IV and 6mg morphine for his pain. Pt left via EMS. - Differential Dx/Clinical Impression Provider Diagnosis: RUQ pain, Vomiting Discharge ED - Sign-Out/Discharge Documenting (check all that apply): Patient Departure All imaging exams completed and their final reports reviewed: No Studies - Discharge Plan Condition: Stable Disposition: TRANS HIGHER LVL OF CARE FAC Referrals: Bret Johnson MD [Primary Care Provider] - - Billing Disposition and Condition Condition: STABLE Disposition: Trans Higher Lvl of Care Fac
[2018-12-12 22:03] VITALS: BP 113/82
[2018-12-12] MEDS ORDERED: Morphine 10 MG/ML VIAL (1 ml) IV ONE (22:10)
[2018-12-12] MEDS ORDERED: NS 0.9% 1000 ML** 1,000 ML IV ONE (22:10)
[2018-12-12] MEDS ORDERED: Ondansetron INJ* 2 MG/ML VIAL IV ONE (22:12)
--- OUTSIDE RECORDS SUMMARY | 2018-12-12 22:27 | XMS REPORT | Continuity of Care Document ---
:1935 External Reference #:[id number] Author Name Pascual Dia, OD Address [address] [place] [address] Care Team Providers Name Role Phone Alex SAWYER, Bret Sanders - Photographer Scientific Care Team Information Engine Research Engineer Problems Active Problems Provider Date Tear film [...] Open-angle glaucoma Ravinder Nelson M.D. Onset: 08/22/2014 Social History Type Date Description Comments Sex Unknown ETOH Use Currently consumes alcohol Tobacco Use Start: Unknown End: Unknown Patient is a former smoker Smoking Status Reviewed: 11/21/18 Patient is a former smoker Allergies, Adverse [...] Nelson, 03/24/2016 Tablets twice a day M.D. Aspir-81 once per day by Unknown 81mg Tablets DR marroquin Co-Enzyme Q-10 Unknown 30mg Capsules Glucosamine Chondroitin Unknown Complex Capsules Multi Vitamin Daily Unknown Tablets Omeprazole Unknown 40mg Capsules DR Triamterene/Hydrochloro Unknown thiazide 50-25mg Capsules Mens Multi Vitamin & Unknown Mineral Formula Tablets Laxative Unknown 25mg Tablets History Medications Stool Softener & Stimulannt Laxative Pascual Dia, OD 11/22/2018 - 02/2019 8.6-50mg Tablets Immunizations Description No Information Available Vital Signs Date Vital Result Comment 08/17/2018 10:54am Intraocular Pressure Right Eye 14 mmHg Intraocular Pressure Left Eye 14 mmHg 05/17/2018 9:56am Intraocular Pressure Right Eye 19 mmHg Intraocular Pressure Left Eye 18 mmHg Results Description No Information Available Procedures Date Code Description Status 11/22/2018 79033 Visual Field Exam Extended, Unilateral Or Bilateral Completed 11/22/2018 67305 Eye Exam Est Intermediate Completed 08/17/2018 09997 Fundus Photography W/Interpretation & Report Completed 08/17/2018 66642 Eye Exam Est Comprehensive Completed Medical Devices Description No Information Available Encounters Description No Information Available Assessments Date Code Description Provider 11/22/2018 H40.1131 Primary open-angle glaucoma, bilateral, mild Pascual Dia, OD stage 11/22/2018 H35.3131 Nonexudative age-related macular Pascual Dia, OD degeneration, bilateral, ea 11/22/2018 Z96.1 Presence of intraocular lens Pascualchad Dia, OD 11/22/2018 H43.813 Vitreous degeneration, bilateral Pascual Dia, OD 08/17/2018 Z96.1 Presence of intraocular lens Pascual Dia, OD 08/17/2018 H40.1131 Primary open-angle glaucoma, bilateral, mild Pascual Dia, OD stage 08/17/2018 H35.3131 Nonexudative age-related macular Pascual Dia, OD degeneration, bilateral, ea 08/17/2018 H43.813 Vitreous degeneration, bilateral Pascual Dia, OD 08/17/2018 H52.4 Presbyopia Pascual Dia, OD 05/24/2018 H52.13 Myopia, bilateral Ravinder Nelson M.D. Plan of Treatment 11/22/2018 - Pascual Dia, ODH40.1131 Primary open-angle glaucoma, bilateral, mild owylsS69.3131 Nonexudative age-related macular degeneration, bilateral, eaZ96.1 Presence of intraocular lensH43.813 Vitreous degeneration, bilateralFollow up:3 mos OCT mac, sooner PRN Functional Status Description No Information Available Mental Status Description No Information Available Referrals Description No Information Available
== END 2018-12-13 04:44 | disposition short-term general hospital (02) ==
LOC: UCEAST 21:50
DX: R10.31 Right lower quadrant pain (principal); R11.2 Nausea with vomiting, unspecified; I10 Essential (primary) hypertension; Z91.09 Other allergy status, other than to drugs and biological substances; Z87.891 Personal history of nicotine dependence
CPT/HCPCS: 36415; 71045; 74177; 76705; 80053; 83605; 83690; 84439; 84443; 84484; 85025; 85379; 87040; 93005; 96360; 96361; 96374; 96375; 99213; 99283; A9270-GY; G0463; J2270; J2405; Q9967

== ENCOUNTER 2018-12-12 22:49 | Emergency (ER) | payer MEDICARE, BC ==
[2018-12-12] MEDS ORDERED: NS 0.9% 1000 ML** 1,000 ML IV ONE (23:17)
--- NOTE | 2018-12-12 23:24 | ED ---
Abdominal Pain/Male - HPI Summary HPI Summary: Pt is an 82 y/o M presenting to the ED with a chief complaint of abd pain in the RUQ initially onset about 1930. He states he began to become nauseous, was assisted outside where he vomited multiple times, and then he developed abdominal pain in the RUQ that has not since resolved. He denies fever, diarrhea , constipation, dysuria, and hematuria. - History of Current Complaint Chief Complaint: EDAbdPain Stated Complaint: ABD PAIN FROM CC Time Seen by Provider: 12/12/18 23:07 Hx Obtained From: Patient Onset/Duration: Sudden Onset, Lasting Hours, Still Present Timing: Constant, Lasting Hours Severity Initially: Moderate Severity Currently: Moderate Pain Intensity: 5 Pain Scale Used: 0-10 Numeric Location: Discrete At: RUQ Radiates: No Aggravating Factor(s): Nothing Alleviating Factor(s): Nothing Associated Signs And Symptoms: Positive: Nausea, Vomiting. Negative: Fever, Constipation, Urinary Symptoms, Diarrhea - Allergies/Home Medications Allergies/Adverse Reactions: Allergies Allergy/AdvReac Type Severity Reaction Status Date / Time RAW OYSTERS Allergy Nausea And Uncoded 08/08/18 13:46 Vomiting PMH/Surg Hx/FS Hx/Imm Hx Previously Healthy: Yes Endocrine/Hematology History: Denies: Hx Diabetes Cardiovascular History: Reports: Hx Hypertension Denies: Hx Congestive Heart Failure, Hx Hypercholesterolemia, Hx Pacemaker/ ICD, Hx Peripheral Vascular Disease Respiratory History: Denies: Hx Asthma GI History: Reports: Hx Gastroesophageal Reflux Disease, Hx Hiatal Hernia History: Reports: Other Problems/Disorders - BPH, TURP X2 Denies: Hx Dialysis, Hx Renal Disease Musculoskeletal History: Denies: Hx Arthritis, Hx Rheumatoid Arthritis, Hx Osteoporosis Sensory History: Reports: Hx Hearing Aid Denies: Hx Cataracts, Hx Contacts or Glasses, Hx Glaucoma Opthamlomology History: Denies: Hx Cataracts, Hx Contacts or Glasses, Hx Glaucoma Neurological History: Denies: Hx Headaches, Hx Seizures, Hx Transient Ischemic Attacks (TIA) Psychiatric History: Denies: Hx Anxiety, Hx Depression, Hx Panic Disorder - Surgical History Surgery Procedure, Year, and Place: LEFT KNEE. PROSTATE X 3,. RIGHT HIP REPLACEMENT SEPTEMBER 2012. [place] CATARACT. RIGHT SHOULDER ARTHROSCOPIC SX DEC 2014 Hx Anesthesia Reactions: No - Immunization History Date of Tetanus Vaccine: unkown Infectious Disease History: No Infectious Disease History: Denies: History Other Infectious Disease, Traveled Outside the [place] in Last 30 Days - Family History Known Family History: Positive: Diabetes, Other - colon cancer - Social History Alcohol Use: Weekly Alcohol Amount: 4-5/WEEK Hx Substance Use: No Substance Use Type: Reports: None Hx Tobacco Use: No Smoking Status (MU): Former Smoker Length of Time of Smoking/Using Tobacco: 20 YRS Have You Smoked in the Last Year: No Review of Systems Negative: Fever Positive: Abdominal Pain, Vomiting, Nausea. Negative: Diarrhea, Other - constipation Negative: dysuria, hematuria All Other Systems Reviewed And Are Negative: Yes Physical Exam - Summary Physical Exam Summary: Constitutional: Well-developed, Well-nourished, Alert. (-) Distressed Skin: Warm, Dry HENT: Normocephalic; Atraumatic Eyes: Conjunctiva normal Neck: Musculoskeletal ROM normal neck. (-) JVD, (-) Stridor, (-) Tracheal deviation Cardio: Rhythm regular, rate normal, Heart sounds normal; Intact distal pulses; Radial pulses are 2+ and symmetric. (-) Murmur Pulmonary/Chest wall: Effort normal. (-) Respiratory distress, (-) Wheezes, (-) Rales Abd: Soft, RUQ tenderness, (-) Distension, (-) Guarding, (-) Rebound. Positive [place] sign. Musculoskeletal: (-) Edema Lymph: (-) Cervical adenopathy Neuro: Alert, Oriented x3 Psych: Mood and affect Normal Triage Information Reviewed: Yes Vital Signs On Initial Exam: Initial Vitals Temp Pulse Resp BP Pulse Ox 98.5 F 90 18 157/84 92 12/12/18 23:00 12/12/18 23:00 12/12/18 23:00 12/12/18 23:00 12/12/18 23:00 Vital Signs Reviewed: Yes Procedures - Sedation Patient Received Moderate/Deep Sedation with Procedure: No Diagnostics - Vital Signs Vital Signs Temp Pulse Resp BP Pulse Ox 12/12/18 23:09 92 134/99 91 12/12/18 23:05 92 94 12/12/18 23:00 98.5 F 90 18 157/84 92 - Laboratory Result Diagrams: 12/12/18 22:25 12/12/18 22:25 Lab Statement: Any lab studies that have been ordered have been reviewed, and results considered in the medical decision making process. - Ultrasound Abdominal US Ultrasound Interpretation Completed By: Radiologist Summary of Ultrasound Findings: No sonographic findings to correlate with patients symptomatology. ED physician has reviewed this report. - EKG 0306 Cardiac Rate: Tachycardia - 122bpm EKG Rhythm: Sinus Tachycardia ST Segment: Normal Ectopy: None Summary of EKG Findings: EKG at 0306 shows sinus tachycardia at 122bpm with no STEMI. Re-Evaluation - Re-Evaluation 1st re-eval Re-Evaluation Time: 01:05 Change: Unchanged Comment: Pt continues to have pain. Will order a CT scan at this point as the pt 's tests have been negative. 2nd re-eval Re-Evaluation Time: 02:50 Change: Unchanged Comment: Pt continues to be tachycardic. He is now hypoxic. Will order medications and more labs. Abdominal Pain Male Course/Dx - Course Course Of Treatment: Patient was here with right upper quadrant tenderness and vomiting. Patient is overall well-appearing upon arrival. Patient a CBC, CMP, lipase performed which were all grossly unremarkable. Patient negative right upper quadrant ultrasound for cholecystitis. Patient did have symptoms a CT scan was ordered which showed no evidence of appendicitis. Upon return from CT scan, patient became tachycardic. Patient was given a second liter of IV fluids. Patient blood for showed a normal lactate, thyroid function. Patient did have mildly elevated d-dimer which is probably normal given his age. Patient no chest pain or short of breath and his tachycardia spontaneously resolved. Patient does not need any emergent CT at this time a was encouraged to return if he worsening symptoms. - Diagnoses Provider Diagnoses: RUQ pain, Vomiting Discharge ED - Sign-Out/Discharge Documenting (check all that apply): Patient Departure - Discharge Plan Condition: Stable Disposition: HOME Prescriptions: Ondansetron HCl [Zofran] 4 mg PO Q8HR PRN #12 tablet PRN Reason: Vomiting Patient Education Materials: Abdominal Pain (ED) Referrals: Bret Johnson MD [Primary Care Provider] - Additional Instructions: Please take your prescribed medications as instructed. Return to the emergency department with any new or worsening abdominal pain, vomiting, trouble breathing , chest pain or fever. Follow up with your primary care provider within the next 1-3 days. - Billing Disposition and Condition Condition: STABLE Disposition: Home - Attestation Statements Document Initiated by Magdalenaibtanvir: Yes Documenting Scribe: Ivy Benson Provider For Whom Magdalenaibe is Documenting (Include Credential): Adan Vallejo MD. Scribe Attestation: Ivy Fortune, scribed for Adan Vallejo MD. on 12/13/18 at 0501. Scribe Documentation Reviewed: Yes Provider Attestation: The documentation as recorded by the scribe, Ivy Benson accurately reflects the service I personally performed and the decisions made by Adan vargas MD. Status of Scribe Document: Viewed
[2018-12-12 23:46] LABS: ABS Eosinophils 0.1 10^3/ul (0-0.6); ABS Lymphocytes 1.4 10^3/ul (1.0-4.8); ABS Monocytes 0.7 10^3/ul (0-0.8); ABS Neutrophils 7.7 10^3/ul (1.5-7.7); Eosinophil % 1.4 %; Hematocrit 47 % (42-52); Hemoglobin 15.8 g/dL (14.0-18.0); Lymphocyte % 14.4 %; Mean Corpuscular HGB Conc 34 g/dL (31-36); Mean Corpuscular Hemoglobin 32 pg (27-31); Mean Corpuscular Volume 94 fL (80-94); Nucleated Red Blood Cells % 0.3; Platelet Count 295 10^3/uL (150-450); Red Blood Count 4.97 10^6 /uL (4.18-5.48); Red Cell Distribution Width 13 % (10-15)
[2018-12-13 00:03] LABS: ALT 15 U/L (7-52); AST 21 U/L (13-39); Albumin 4.3 g/dL (3.2-5.2); Albumin/Globulin Ratio 1.6 (1-3); Alkaline Phosphatase 80 U/L (34-104); Anion Gap 10 mmol/L (2-11); BUN/Creatinine Ratio 18.7 (8-20); Blood Urea Nitrogen 20 mg/dL (6-24); CO2 Carbon Dioxide 28 mmol/L (22-32); Calcium 9.1 mg/dL (8.6-10.3); Chloride 101 mmol/L (101-111); EGFR African American 80.1 (>60); EGFR Non-African American 66.2 (>60); Globulin 2.7 g/dL (2-4); Glucose 137 mg/dL (70-100); Potassium 3.9 mmol/L (3.5-5.0); Sodium 139 mmol/L (135-145)
[2018-12-13] MEDS ORDERED: Iohexol 300* (CONTRAST) 10 ML SDV IV ONE (01:19)
[2018-12-13] MEDS ORDERED: NS 0.9% 1000 ML** 1,000 ML IV ONE (02:51)
[2018-12-13 03:58] LABS: Troponin I 0.01 ng/mL (<0.04)
[2018-12-13 04:38] LABS: TSH (Thyroid Stimulating Horm) 1.71 mcIU/mL (0.34-5.60)
[2018-12-13 04:40] LABS: Free T4 0.87 ng/dL (0.61-1.12)
[2018-12-13 04:48] VITALS: BP 130/81
== END 2018-12-13 04:44 | disposition home or self-care (01) ==
LOC: ED 22:49
DX: R10.11 Right upper quadrant pain (principal); N28.1 Cyst of kidney, acquired; K40.90 Unilateral inguinal hernia, without obstruction or gangrene, not specified as recurrent; I10 Essential (primary) hypertension; K21.9 Gastro-esophageal reflux disease without esophagitis; Z96.641 Presence of right artificial hip joint; Z87.891 Personal history of nicotine dependence; Z91.09 Other allergy status, other than to drugs and biological substances; R10.31 Right lower quadrant pain; R11.2 Nausea with vomiting, unspecified
CPT/HCPCS: 36415; 71045; 74177; 76705; 80053; 83605; 83690; 84439; 84443; 84484; 85025; 85379; 87040; 93005; 96360; 96361; 99283; Q9967

== ENCOUNTER 2018-12-24 05:37 | Emergency (ER) | payer MEDICARE, BC ==
[2018-12-24 06:38] LABS: Urine Appearance Clear; Urine Bacteria Absent (Absent); Urine Bilirubin Negative (Negative); Urine Blood Negative (Negative); Urine Color Yellow; Urine Glucose Negative (Negative); Urine Ketones Negative (Negative); Urine Nitrite Negative (Negative); Urine Protein Negative (Negative); Urine Red Blood Cell Absent (Absent); Urine Urobilinogen Negative (Negative); Urine White Blood Cell Trace(0-5/hpf) (Absent)
[2018-12-24 06:49] LABS: ABS Eosinophils 0.2 10^3/ul (0-0.6); ABS Lymphocytes 1.5 10^3/ul (1.0-4.8); ABS Monocytes 0.7 10^3/ul (0-0.8); ABS Neutrophils 3.4 10^3/ul (1.5-7.7); Eosinophil % 3.2 %; Hematocrit 42 % (42-52); Hemoglobin 14.8 g/dL (14.0-18.0); Mean Corpuscular HGB Conc 35 g/dL (31-36); Mean Corpuscular Hemoglobin 32 pg (27-31); Mean Corpuscular Volume 92 fL (80-94); Mean Platelet Volume 6.7 fL (7.4-10.4); Platelet Count 257 10^3/uL (150-450); Red Blood Count 4.58 10^6 /uL (4.18-5.48); Red Cell Distribution Width 13 % (10-15); White Blood Count 5.9 10^3/uL (3.5-10.8)
[2018-12-24 07:06] LABS: ALT 12 U/L (7-52); AST 15 U/L (13-39); Albumin 3.8 g/dL (3.2-5.2); Albumin/Globulin Ratio 1.7 (1-3); Alkaline Phosphatase 78 U/L (34-104); Anion Gap 8 mmol/L (2-11); BUN/Creatinine Ratio 21.6 (8-20); Blood Urea Nitrogen 21 mg/dL (6-24); CO2 Carbon Dioxide 29 mmol/L (22-32); Chloride 103 mmol/L (101-111); EGFR African American 89.4 (>60); EGFR Non-African American 73.9 (>60); Globulin 2.3 g/dL (2-4); Glucose 108 mg/dL (70-100); Potassium 3.8 mmol/L (3.5-5.0); Sodium 140 mmol/L (135-145); Total Protein 6.1 g/dL (6.4-8.9)
[2018-12-24 07:07] LABS: Troponin I 0.01 ng/mL (<0.04)
--- NOTE | 2018-12-24 07:08 | ED ---
Abdominal Pain/Male - HPI Summary HPI Summary: Pt. is an 83 y.o male who presents to the ER for ongoing right sided abdominal pain x 2 weeks. Pt. seen in the ED 12/12/18 and had an abd./pelvic ct with contrast and an abd. u/s that were both negative. Pt. states pain was worse this morning and presents to ER for re-evaluation. Pt. saw his PCP last week and was instructed to dc motrin. Pt. notes he is still taking motrin and took a dose this morning that improved his sxs. Pt. notes that eating seems to improve pain. Last colonoscopy 3 years ago and normal per pt. Pt. denies CP, SOB, cough , fever, vomiting, diarrhea. Pt. notes mild constipation that was improved with stool softener. Past medical hx of GERD. Otherwise denies past medical hx or prior abd. surgeries. Sxs are moderate in severity. No current modifying factors. - History of Current Complaint Chief Complaint: EDAbdPain Stated Complaint: RIGHT SIDED PAIN Time Seen by Provider: 12/24/18 05:49 Hx Obtained From: Patient Pain Intensity: 8 - Allergies/Home Medications Allergies/Adverse Reactions: Allergies Allergy/AdvReac Type Severity Reaction Status Date / Time RAW OYSTERS Allergy Nausea And Uncoded 01/07/19 09:17 Vomiting Home Medications: Home Medications Aspirin EC TAB* [Ecotrin EC Low Dose 81 MG*] 81 mg PO DAILY 12/24/18 [History Confirmed 12/24/18] Coenzyme Q10 (NF) [Th Co Q-10] 1 cap PO DAILY 12/24/18 [History Confirmed ] Omeprazole (Nf) [Prilosec (NF)] 40 mg PO DAILY 12/24/18 [History Confirmed 12/24] Timolol 0.25% OPHTH.SOLN* [Timoptic Ophth.soln 0.25%] 1 drop BOTH EYES BID 12/24 [History Confirmed 12/24/18] Triamterene/HCTZ 37.5-25 MG* [Dyazide CAP*] 1 cap PO DAILY 12/24/18 [History Confirmed 12/24/18] Vit C/E/Zn/Coppr/Lutein/Zeaxan [Preservision Areds 2 Softgel] 1 each PO BID [History Confirmed 12/24/18] PMH/Surg Hx/FS Hx/Imm Hx Previously Healthy: Yes Endocrine/Hematology History: Denies: Hx Diabetes Cardiovascular History: Reports: Hx Hypertension Denies: Hx Congestive Heart Failure, Hx Hypercholesterolemia, Hx Pacemaker/ ICD, Hx Peripheral Vascular Disease Respiratory History: Denies: Hx Asthma GI History: Reports: Hx Gastroesophageal Reflux Disease, Hx Hiatal Hernia History: Reports: Other Problems/Disorders - BPH, TURP X2 Denies: Hx Dialysis, Hx Renal Disease Musculoskeletal History: Denies: Hx Arthritis, Hx Rheumatoid Arthritis, Hx Osteoporosis Sensory History: Reports: Hx Hearing Aid Denies: Hx Cataracts, Hx Contacts or Glasses, Hx Glaucoma Opthamlomology History: Denies: Hx Cataracts, Hx Contacts or Glasses, Hx Glaucoma Neurological History: Denies: Hx Headaches, Hx Seizures, Hx Transient Ischemic Attacks (TIA) Psychiatric History: Denies: Hx Anxiety, Hx Depression, Hx Panic Disorder - Surgical History Surgery Procedure, Year, and Place: LEFT KNEE. PROSTATE X 3,. RIGHT HIP REPLACEMENT SEPTEMBER 2012. [place]AN CATARACT. RIGHT SHOULDER ARTHROSCOPIC SX DEC 2014 Hx Anesthesia Reactions: No - Immunization History Date of Tetanus Vaccine: unkown Infectious Disease History: No Infectious Disease History: Denies: History Other Infectious Disease, Traveled Outside the [place] in Last 30 Days - Family History Known Family History: Positive: Diabetes, Other - colon cancer - Social History Occupation: Retired Lives: Alone Alcohol Use: Weekly Alcohol Amount: 4-5/WEEK Hx Substance Use: No Substance Use Type: Reports: None Hx Tobacco Use: No Smoking Status (MU): Former Smoker Length of Time of Smoking/Using Tobacco: 20 YRS Have You Smoked in the Last Year: No Review of Systems Constitutional: Negative Negative: Fever, Chills Eyes: Negative ENT: Negative Cardiovascular: Negative Negative: Palpitations, Chest Pain Respiratory: Negative Negative: Shortness Of Breath, Cough Positive: Abdominal Pain, Nausea. Negative: Vomiting, Diarrhea Genitourinary: Negative Negative: dysuria, flank pain Skin: Negative Negative: Rash Neurological: Negative All Other Systems Reviewed And Are Negative: Yes Physical Exam Triage Information Reviewed: Yes Vital Signs On Initial Exam: Initial Vitals Temp Pulse Resp BP Pulse Ox 97.2 F 69 15 175/93 93 12/24/18 05:38 12/24/18 05:38 12/24/18 05:38 12/24/18 05:38 12/24/18 05:38 Appearance: Positive: Well-Appearing - Pt. sitting up in bed in NAD> Skin: Positive: Warm, Dry Head/Face: Positive: Normal Head/Face Inspection Eyes: Positive: Normal, EOMI Neck: Positive: Supple Respiratory/Lung Sounds: Positive: Clear to Auscultation, Breath Sounds Present Cardiovascular: Positive: Normal, RRR Abdomen Description: Positive: Other: - Abd. is obese and distended. Soft with pain on palpation to right upper abdomen with guarding. Neurological: Positive: Normal, CN Intact II-III Psychiatric: Positive: Affect/Mood Appropriate Procedures - Sedation Patient Received Moderate/Deep Sedation with Procedure: No Diagnostics - Vital Signs Vital Signs Temp Pulse Resp BP Pulse Ox 12/24/18 06:03 72 151/84 95 12/24/18 05:38 97.2 F 69 15 175/93 93 - Laboratory Lab Results: Lab Results 12/24/18 12/24/18 12/24/18 Range/Units 06:00 06:43 06:43 WBC 5.9 (3.5-10.8) 10^3/uL RBC 4.58 (4.18-5.48) 10^6 /uL Hgb 14.8 (14.0-18.0) g/dL Hct 42 (42-52) % MCV 92 (80-94) fL MCH 32 H (27-31) pg MCHC 35 (31-36) g/dL RDW 13 (10-15) % Plt Count 257 (150-450) 10^3/uL MPV 6.7 L (7.4-10.4) fL Neut % (Auto) 57.6 % Lymph % (Auto) 26.0 % [place] % (Auto) 12.6 % Eos % (Auto) 3.2 % Baso % (Auto) 0.6 % Absolute Neuts (auto) 3.4 (1.5-7.7) 10^3/ul Absolute Lymphs (auto) 1.5 (1.0-4.8) 10^3/ul Absolute Monos (auto) 0.7 (0-0.8) 10^3/ul Absolute Eos (auto) 0.2 (0-0.6) 10^3/ul Absolute Basos (auto) 0.0 (0-0.2) 10^3/ul Absolute Nucleated RBC 0.0 10^3/ul Nucleated RBC % 0.0 Sodium 140 (135-145) mmol/L Potassium 3.8 (3.5-5.0) mmol/L Chloride 103 (101-111) mmol/L Carbon Dioxide 29 (22-32) mmol/L Anion Gap 8 (2-11) mmol/L BUN 21 (6-24) mg/dL Creatinine 0.97 (0.67-1.17) mg/dL Est GFR ( Amer) 89.4 (>60) Est GFR (Non-Af Amer) 73.9 (>60) BUN/Creatinine Ratio 21.6 H (8-20) Glucose 108 H (70-100) mg/dL Lactic Acid (0.5-2.0) mmol/L Calcium 9.0 (8.6-10.3) mg/dL Total Bilirubin 0.40 (0.2-1.0) mg/dL AST 15 (13-39) U/L ALT 12 (7-52) U/L Alkaline Phosphatase 78 (34-104) U/L Troponin I Pending C-Reactive Protein 3.10 (<8.01) mg/L Total Protein 6.1 L (6.4-8.9) g/dL Albumin 3.8 (3.2-5.2) g/dL Globulin 2.3 (2-4) g/dL Albumin/Globulin Ratio 1.7 (1-3) Lipase < 10 L (11.0-82.0) U/L Urine Color Yellow Urine Appearance Clear Urine pH 5.0 (5-9) Ur Specific [place] 1.020 (1.010-1.030) Urine Protein Negative (Negative) Urine Ketones Negative (Negative) Urine Blood Negative (Negative) Urine Nitrate Negative (Negative) Urine Bilirubin Negative (Negative) Urine Urobilinogen Negative (Negative) Ur Leukocyte Esterase 2+ A (Negative) Urine WBC (Auto) Trace(0-5/hpf) (Absent) Urine RBC (Auto) Absent (Absent) Urine Bacteria Absent (Absent) Urine Glucose Negative (Negative) Urine Ascorbic Acid * A (Negative) 12/24/18 Range/Units 06:43 WBC (3.5-10.8) 10^3/uL RBC (4.18-5.48) 10^6 /uL Hgb (14.0-18.0) g/dL Hct (42-52) % MCV (80-94) fL MCH (27-31) pg MCHC (31-36) g/dL RDW (10-15) % Plt Count (150-450) 10^3/uL MPV (7.4-10.4) fL Neut % (Auto) % Lymph % (Auto) % [place] % (Auto) % Eos % (Auto) % Baso % (Auto) % Absolute Neuts (auto) (1.5-7.7) 10^3/ul Absolute Lymphs (auto) (1.0-4.8) 10^3/ul Absolute Monos (auto) (0-0.8) 10^3/ul Absolute Eos (auto) (0-0.6) 10^3/ul Absolute Basos (auto) (0-0.2) 10^3/ul Absolute Nucleated RBC 10^3/ul Nucleated RBC % Sodium (135-145) mmol/L Potassium (3.5-5.0) mmol/L Chloride (101-111) mmol/L Carbon Dioxide (22-32) mmol/L Anion Gap (2-11) mmol/L BUN (6-24) mg/dL Creatinine (0.67-1.17) mg/dL Est GFR ( Amer) (>60) Est GFR (Non-Af Amer) (>60) BUN/Creatinine Ratio (8-20) Glucose (70-100) mg/dL Lactic Acid 1.7 (0.5-2.0) mmol/L Calcium (8.6-10.3) mg/dL Total Bilirubin (0.2-1.0) mg/dL AST (13-39) U/L ALT (7-52) U/L Alkaline Phosphatase (34-104) U/L Troponin I C-Reactive Protein (<8.01) mg/L Total Protein (6.4-8.9) g/dL Albumin (3.2-5.2) g/dL Globulin (2-4) g/dL Albumin/Globulin Ratio (1-3) Lipase (11.0-82.0) U/L Urine Color Urine Appearance Urine pH (5-9) Ur Specific [place] (1.010-1.030) Urine Protein (Negative) Urine Ketones (Negative) Urine Blood (Negative) Urine Nitrate (Negative) Urine Bilirubin (Negative) Urine Urobilinogen (Negative) Ur Leukocyte Esterase (Negative) Urine WBC (Auto) (Absent) Urine RBC (Auto) (Absent) Urine Bacteria (Absent) Urine Glucose (Negative) Urine Ascorbic Acid (Negative) Result Diagrams: 12/24/18 06:43 12/24/18 06:43 Lab Statement: Any lab studies that have been ordered have been reviewed, and results considered in the medical decision making process. Abdominal Pain Male Course/Dx - Course Course Of Treatment: Pt. presenting with ongoing RUQ pain. He is afebrile with stable VS. Negative GB US and CT scan 2 weeks ago. WIll recheck basic labs. Pt. took motrin CARB[employer] GRINDER which he states helped with pain. ECG done at 621 shows a sinus rhythm of 68bpm, normal axis, no ST elevation or depression. CXR and abd. xr negative per radiology. Blood work unremarkable. Pt. examined by Dr. Mary as well. Suspect pain is most likely from PUD. Pt. given GI cocktail and pepcid with some relief on pain. Pt. has an apt with his PCP today. He may benefit from changing or adding PPI and H2 blockers. Will defer to PCP since he sees them today. Recommend GI referral for endoscopy for further evaluation. Pt. understands and agrees with plan. - Diagnoses Differential Diagnosis/HQI/PQRI: ACS, Bowel Obstruction, Constipation, Gall Bladder Disease, Peptic Ulcer Disease, Pneumonia Provider Diagnoses: Abdominal pain Discharge ED - Sign-Out/Discharge Documenting (check all that apply): Patient Departure - Discharge Plan Condition: Improved Disposition: HOME Patient Education Materials: Peptic Ulcer (ED), Diet for Stomach Ulcers and Gastritis (ED), Acute Abdominal Pain (ED) Referrals: Bret Johnson MD [Primary Care Provider] - Additional Instructions: Please see your PCP today as scheduled Recommend referral to GI for endoscopy for further evaluation of pain You may benefit from change in your acid reflux medication Stop taking ibuprofen Return to ER if symptoms change or worsen - Billing Disposition and Condition Condition: IMPROVED Disposition: Home - Attestation Statements Provider Attestation: the patient was seen by the midlevel provider, it was determined by them that it was not necessary for me to see the patient, I was available for consult during the patient's visit in the ED. I did not establish and patient-physician relationship. The chart however has been reviewed and I am signing in an administrative capacity.
[2018-12-24] MEDS ORDERED: Lidocaine 2% VISCOUS* 15 ML UDC PO ONE (08:17)
[2018-12-24] MEDS ORDERED: Al Hydrox/Mg Hydrox/Simet LIQ* 30 ML UDC PO ONE (08:17)
[2018-12-24] MEDS ORDERED: Famotidine IV* 10 MG/ML 2 ML (20 mg) IV ONE (08:17)
[2018-12-24 09:41] VITALS: BP 139/75
== END 2018-12-24 10:01 | disposition home or self-care (01) ==
LOC: ED 05:37
DX: R10.9 Unspecified abdominal pain (principal); I10 Essential (primary) hypertension; K21.9 Gastro-esophageal reflux disease without esophagitis; Z96.641 Presence of right artificial hip joint; Z87.891 Personal history of nicotine dependence; Z79.82 Long term (current) use of aspirin; Z79.899 Other long term (current) drug therapy
CPT/HCPCS: 36415; 71045; 74018; 80053; 81003; 81015; 83605; 83690; 84484; 85025; 86140; 87086; 93005; 96374; 99283; A9270-GY

== ENCOUNTER 2023-09-18 14:43 | Observation (INO) ==
[2023-09-18] MEDS: Lactated Ringers 1000 ml BAG IV.FLUID IV ONE (15:36)
[2023-09-18] MEDS: Ondansetron 4 mg VIAL 2 MG/ML 2 ml VIAL IV ONE (15:36)
[2023-09-18 15:55] LABS: ABS Eosinophils 0.1 10^3/uL (0.0-0.5); ABS Lymphocytes 0.8 10^3/uL (1.0-4.8); ABS Monocytes 0.6 10^3/uL (0.0-1.1); ABS Neutrophils 4.6 10^3/uL (1.5-7.6); ABS Nucleated RBC 0.01 10^3/ul; Eosinophil % 1.6 %; Hematocrit 43.4 % (38-53); Hemoglobin 14.6 g/dL (13.2-16.3); Lymphocyte % 13.4 %; Mean Corpuscular Hemoglobin 31.3 pg (27-33); Mean Corpuscular Hgb Conc 33.7 g/dL (31-36); Mean Corpuscular Volume 92.8 fL (80-97); Mean Platelet Volume 6.9 fL (7.5-11.2); Nucleated Red Blood Cells % 0.1 %/100WBC (0.0-0.8); Platelet Count 228 10^3/uL (150-450); Red Blood Count 4.67 10^6/uL (4.06-5.63); Red Cell Distribution Width 13.9 % (12-17); White Blood Count 6.2 10^3/uL (3.6-10.2)
[2023-09-18 16:38] LABS: INR 1.26 (0.83-1.13)
[2023-09-18 16:44] LABS: Albumin 3.9 g/dL (3.2-5.2); Albumin/Globulin Ratio 1.8 (1-3); Calcium 9.5 mg/dL (8.6-10.3); Creatinine, Serum 1.08 mg/dL (0.67-1.17); Globulin 2.2 g/dL (2-4); Phosphorus 3.6 mg/dL (2.5-5.0); Potassium 4.4 mmol/L (3.5-5.0); Total Bilirubin 1.7 mg/dL (0.2-1.0); Total Protein 6.1 g/dL (6.4-8.9); eGFR CKD-EPI 66.4 (>60)
[2023-09-18 16:59] LABS: Urine Appearance Clear; Urine Bilirubin Negative (Negative); Urine Blood Negative (Negative); Urine Color Yellow; Urine Glucose Negative (Negative); Urine Ketones Negative (Negative); Urine Nitrite Negative (Negative); Urine Protein Negative (Negative); Urine Specific Gravity 1.017 (1.002-1.030); Urine Urobilinogen Negative (Negative); Urine pH 6.5 (5.0-8.0)
[2023-09-18 17:24] LABS: High Sensitivity Troponin 1 Hr 3 pg/mL (<20)
[2023-09-18] MEDS: Iohexol 300 (CONTRAST) 10 ML SDV IV ONE (20:10)
[2023-09-18 21:53] LABS: Calcium 9.1 mg/dL (8.6-10.3); Creatinine, Serum 1.08 mg/dL (0.67-1.17); Potassium 4.4 mmol/L (3.5-5.0); eGFR CKD-EPI 66.4 (>60)
[2023-09-18 21:55] LABS: Albumin 3.6 g/dL (3.2-5.2); Albumin/Globulin Ratio 1.7 (1-3); Globulin 2.1 g/dL (2-4); Total Bilirubin 2.8 mg/dL (0.2-1.0); Total Protein 5.7 g/dL (6.4-8.9)
[2023-09-19] MEDS: Piperacillin/Tazobac 3.375 BAG 3.375 GM/100 ML BAG IV ONE (00:08)
[2023-09-19] MEDS: Lactated Ringers 1000 ml BAG IV.FLUID IV ONE (01:04)
[2023-09-19] MEDS: Latanoprost 0.005% 2.5 ml BTL BOTH EYES SCH (05:55)
[2023-09-19 06:09] LABS: ABS Eosinophils 0.1 10^3/uL (0.0-0.5); ABS Lymphocytes 0.8 10^3/uL (1.0-4.8); ABS Monocytes 0.6 10^3/uL (0.0-1.1); ABS Neutrophils 3.5 10^3/uL (1.5-7.6); Eosinophil % 1.1 %; Hematocrit 41.1 % (38-53); Hemoglobin 13.8 g/dL (13.2-16.3); Lymphocyte % 15.3 %; Mean Corpuscular Hemoglobin 31.1 pg (27-33); Mean Corpuscular Hgb Conc 33.5 g/dL (31-36); Mean Corpuscular Volume 92.6 fL (80-97); Mean Platelet Volume 6.8 fL (7.5-11.2); Platelet Count 234 10^3/uL (150-450); Red Blood Count 4.44 10^6/uL (4.06-5.63); Red Cell Distribution Width 14.1 % (12-17); White Blood Count 4.9 10^3/uL (3.6-10.2)
[2023-09-19 06:27] LABS: Albumin 3.5 g/dL (3.2-5.2); Albumin/Globulin Ratio 1.6 (1-3); Creatinine, Serum 1.11 mg/dL (0.67-1.17); Globulin 2.2 g/dL (2-4); Magnesium 1.9 mg/dL (1.9-2.7); Phosphorus 3.9 mg/dL (2.5-5.0); Potassium 4.3 mmol/L (3.5-5.0); Total Bilirubin 1.6 mg/dL (0.2-1.0); Total Protein 5.7 g/dL (6.4-8.9); eGFR CKD-EPI 64.3 (>60)
[2023-09-19 06:41] LABS: Carcinoembryonic Antigen 2.5 ng/mL (0.1-5.0)
[2023-09-19] MEDS: Triamterene/HCTZ 75/50 mg 1 TAB PO SCH (11:23)
[2023-09-19] MEDS: Timolol 0.25% OPHTH.SOLN BTL BOTH EYES SCH (11:23)
[2023-09-20 05:22] LABS: Mean Platelet Volume 7.1 fL (7.5-11.2); Platelet Count 209 10^3/uL (150-450)
[2023-09-20 05:23] LABS: INR 1.11 (0.83-1.13)
[2023-09-20] MEDS: Senna TAB 8.6 mg TAB PO PRN (12:06)
[2023-09-20 14:20] VITALS: BP 115/66
== END 2023-09-20 14:52 | disposition home or self-care (01) ==
LOC: EDHOLD 14:43 → ED 14:43 → SUATTDRO 09-19 04:25 → MEDTELE 09-19 07:49
PROVIDERS: ADMIT Internal Medicine; ATTEND Student in an Organized Health Care Education/Training Program

== ENCOUNTER 2023-11-23 09:49 | Observation (INO) ==
[2023-11-23] MEDS: Lactated Ringers 1000 ml BAG 1,000 ML IV ONE (11:33)
[2023-11-23] MEDS: Ondansetron 4 mg VIAL 2 MG/ML 2 ml VIAL IV ONE (11:34)
[2023-11-23 11:47] LABS: ABS Eosinophils 0.1 10^3/uL (0.0-0.5); ABS Lymphocytes 1.3 10^3/uL (1.0-4.8); ABS Monocytes 0.7 10^3/uL (0.0-1.1); ABS Nucleated RBC 0.01 10^3/ul; Hematocrit 36.8 % (38-53); Hemoglobin 12.6 g/dL (13.2-16.3); Lymphocyte % 24.6 %; Mean Corpuscular Hemoglobin 32.1 pg (27-33); Mean Corpuscular Hgb Conc 34.3 g/dL (31-36); Mean Corpuscular Volume 93.5 fL (80-97); Mean Platelet Volume 6.8 fL (7.5-11.2); Nucleated Red Blood Cells % 0.1 %/100WBC (0.0-0.8); Platelet Count 210 10^3/uL (150-450); Red Blood Count 3.93 10^6/uL (4.06-5.63); Red Cell Distribution Width 14.1 % (12-17); White Blood Count 5.1 10^3/uL (3.6-10.2)
[2023-11-23 11:58] LABS: Urine Appearance Clear; Urine Bilirubin Negative (Negative); Urine Blood Negative (Negative); Urine Color Yellow; Urine Glucose Negative (Negative); Urine Ketones Negative (Negative); Urine Nitrite Negative (Negative); Urine Protein Negative (Negative); Urine Specific Gravity 1.018 (1.002-1.030); Urine Urobilinogen Negative (Negative); Urine pH 5.5 (5.0-8.0)
[2023-11-23 12:05] LABS: Albumin 3.2 g/dL (3.2-5.2); Albumin/Globulin Ratio 1.7 (1-3); C Reactive Protein 12.34 mg/L (<8.01); Calcium 8.7 mg/dL (8.6-10.3); Creatinine, Serum 1.27 mg/dL (0.67-1.17); Globulin 1.9 g/dL (2-4); Magnesium 1.7 mg/dL (1.9-2.7); Potassium 3.9 mmol/L (3.5-5.0); Total Bilirubin 1.8 mg/dL (0.2-1.0); Total Protein 5.1 g/dL (6.4-8.9); eGFR CKD-EPI 54.7 (>60)
[2023-11-23] MEDS: Iodixanol (CONTRAST) 320 MG/ML 100 ML SDV IV ONE (13:48)
[2023-11-23] MEDS: Magnesium Sulfate IV 1GM/100ML 1 GM/100 ML BAG IV ONE (14:19)
[2023-11-23] MEDS ORDERED: Senna TAB 8.6 mg TAB PO PRN (18:17)
[2023-11-23] MEDS ORDERED: Ondansetron 4 mg VIAL 2 MG/ML 2 ml VIAL IV PRN (18:17)
[2023-11-23] MEDS: Piperacillin/Tazobac 3.375 BAG 3.375 GM/100 ML BAG IV ONE (19:44)
[2023-11-23] MEDS ORDERED: Zosyn per Pharmacy NOTE FOLLOW UP SCH (20:00)
[2023-11-23] MEDS: Lactated Ringers 1000 ml BAG 1,000 ML IV SCH (20:32)
[2023-11-23] MEDS: Magnesium Sulfate 2 gm BAG 2 GM/50 ML BAG IVPB ONE (21:33)
[2023-11-23] MEDS: Timolol 0.25% OPHTH.SOLN BTL BOTH EYES SCH (21:34)
[2023-11-23] MEDS: NF:Multivitamins/Mins AREDS2 (NF) CAP PO SCH (21:34)
[2023-11-23] MEDS: Latanoprost 0.005% 2.5 ml BTL BOTH EYES SCH (21:34)
[2023-11-23] MEDS: Morphine 4 MG/ML VIAL (1 ml) IV PRN (22:38)
[2023-11-24] MEDS: ZOSYN 3.375 GM Q8H per EXTENDED INFUSION IV SCH ×2 (01:16→02:01)
[2023-11-24 07:32] LABS: ABS Eosinophils 0.1 10^3/uL (0.0-0.5); ABS Lymphocytes 1.3 10^3/uL (1.0-4.8); ABS Monocytes 0.8 10^3/uL (0.0-1.1); ABS Nucleated RBC 0.02 10^3/ul; Eosinophil % 1.5 %; Hematocrit 40.2 % (38-53); Hemoglobin 13.9 g/dL (13.2-16.3); Lymphocyte % 21.3 %; Mean Corpuscular Hemoglobin 32.5 pg (27-33); Mean Corpuscular Hgb Conc 34.7 g/dL (31-36); Mean Corpuscular Volume 93.6 fL (80-97); Mean Platelet Volume 7.2 fL (7.5-11.2); Nucleated Red Blood Cells % 0.2 %/100WBC (0.0-0.8); Platelet Count 253 10^3/uL (150-450); Red Blood Count 4.29 10^6/uL (4.06-5.63); Red Cell Distribution Width 14.5 % (12-17); White Blood Count 6.3 10^3/uL (3.6-10.2)
[2023-11-24 07:55] LABS: Albumin 3.5 g/dL (3.2-5.2); Creatinine, Serum 1.45 mg/dL (0.67-1.17); Magnesium 2.2 mg/dL (1.9-2.7); Potassium 4.3 mmol/L (3.5-5.0); Total Protein 5.8 g/dL (6.4-8.9); eGFR CKD-EPI 46.6 (>60)
[2023-11-24 07:56] LABS: Albumin/Globulin Ratio 1.5 (1-3); Globulin 2.3 g/dL (2-4); Total Bilirubin 2.1 mg/dL (0.2-1.0)
[2023-11-24] MEDS: Polyethylene Glycol 3350 17 GM PACKET PO SCH (09:58)
[2023-11-24] MEDS: Senna TAB 8.6 mg TAB PO SCH (09:58)
[2023-11-24] MEDS ORDERED: Morphine 4 MG/ML VIAL (1 ml) IV PRN (13:53)
[2023-11-25] MEDS: Morphine ORAL.SOLN 10 mg 2 mg/ml UDC 5 ml (10 mg) PO PRN (01:18)
[2023-11-25 06:55] LABS: ABS Eosinophils 0.1 10^3/uL (0.0-0.5); ABS Lymphocytes 1.3 10^3/uL (1.0-4.8); ABS Monocytes 0.8 10^3/uL (0.0-1.1); ABS Nucleated RBC 0.01 10^3/ul; Eosinophil % 2.4 %; Hematocrit 33.7 % (38-53); Lymphocyte % 25.1 %; Mean Corpuscular Hemoglobin 33.6 pg (27-33); Mean Corpuscular Hgb Conc 35.8 g/dL (31-36); Mean Corpuscular Volume 93.9 fL (80-97); Mean Platelet Volume 6.7 fL (7.5-11.2); Nucleated Red Blood Cells % 0.1 %/100WBC (0.0-0.8); Platelet Count 195 10^3/uL (150-450); Red Blood Count 3.59 10^6/uL (4.06-5.63); Red Cell Distribution Width 14.4 % (12-17); White Blood Count 5.3 10^3/uL (3.6-10.2)
[2023-11-25 07:18] LABS: Albumin 3.2 g/dL (3.2-5.2); Albumin/Globulin Ratio 1.8 (1-3); Calcium 8.4 mg/dL (8.6-10.3); Creatinine, Serum 1.3 mg/dL (0.67-1.17); Globulin 1.8 g/dL (2-4); Magnesium 1.9 mg/dL (1.9-2.7); Potassium 4.3 mmol/L (3.5-5.0); Total Bilirubin 1.8 mg/dL (0.2-1.0); eGFR CKD-EPI 53.2 (>60)
[2023-11-25 07:44] LABS: C Reactive Protein 24.13 mg/L (<8.01)
[2023-11-25] MEDS: Morphine ER 15 mg TAB ** extended release PO SCH (09:00)
[2023-11-26 05:50] LABS: ABS Eosinophils 0.2 10^3/uL (0.0-0.5); ABS Lymphocytes 1.3 10^3/uL (1.0-4.8); ABS Monocytes 0.9 10^3/uL (0.0-1.1); ABS Neutrophils 3.2 10^3/uL (1.5-7.6); ABS Nucleated RBC 0.01 10^3/ul; Eosinophil % 3.1 %; Hematocrit 35.4 % (38-53); Hemoglobin 12.7 g/dL (13.2-16.3); Lymphocyte % 22.7 %; Mean Corpuscular Hemoglobin 33.3 pg (27-33); Mean Corpuscular Hgb Conc 35.8 g/dL (31-36); Mean Corpuscular Volume 92.9 fL (80-97); Mean Platelet Volume 6.9 fL (7.5-11.2); Nucleated Red Blood Cells % 0.1 %/100WBC (0.0-0.8); Platelet Count 202 10^3/uL (150-450); Red Blood Count 3.81 10^6/uL (4.06-5.63); Red Cell Distribution Width 14.2 % (12-17); White Blood Count 5.6 10^3/uL (3.6-10.2)
[2023-11-26 06:41] LABS: Albumin 3.2 g/dL (3.2-5.2); Albumin/Globulin Ratio 1.7 (1-3); C Reactive Protein 21.66 mg/L (<8.01); Calcium 8.6 mg/dL (8.6-10.3); Creatinine, Serum 1.14 mg/dL (0.67-1.17); Globulin 1.9 g/dL (2-4); Magnesium 1.9 mg/dL (1.9-2.7); Phosphorus 3.6 mg/dL (2.5-5.0); Potassium 4.6 mmol/L (3.5-5.0); Total Bilirubin 1.6 mg/dL (0.2-1.0); Total Protein 5.1 g/dL (6.4-8.9); eGFR CKD-EPI 62.2 (>60)
[2023-11-26 09:11] VITALS: BP 112/62
== END 2023-11-26 14:00 | disposition home or self-care (01) ==
LOC: EDHOLD 09:49 → ED 09:49 → MED 23:49
PROVIDERS: ADMIT Internal Medicine; ATTEND Internal Medicine

== ENCOUNTER 2023-12-20 05:37 | Inpatient (IN) ==
[2023-12-20 07:02] LABS: ABS Eosinophils 0.1 10^3/uL (0.0-0.5); ABS Lymphocytes 0.8 10^3/uL (1.0-4.8); ABS Monocytes 0.8 10^3/uL (0.0-1.1); ABS Neutrophils 3.2 10^3/uL (1.5-7.6); ABS Nucleated RBC 0.01 10^3/ul; Eosinophil % 1.2 %; Hematocrit 32.8 % (38-53); Hemoglobin 11.6 g/dL (13.2-16.3); Lymphocyte % 17.1 %; Mean Corpuscular Hemoglobin 34.1 pg (27-33); Mean Corpuscular Hgb Conc 35.3 g/dL (31-36); Mean Corpuscular Volume 96.7 fL (80-97); Mean Platelet Volume 6.6 fL (7.5-11.2); Nucleated Red Blood Cells % 0.2 %/100WBC (0.0-0.8); Platelet Count 238 10^3/uL (150-450); Red Blood Count 3.39 10^6/uL (4.06-5.63); Red Cell Distribution Width 14.6 % (12-17); White Blood Count 4.9 10^3/uL (3.6-10.2)
[2023-12-20 07:04] LABS: INR 1.3 (0.85-1.14)
[2023-12-20 07:30] LABS: Albumin 3.2 g/dL (3.2-5.2); Albumin/Globulin Ratio 1.5 (1-3); Calcium 9.8 mg/dL (8.6-10.3); Creatinine, Serum 1.33 mg/dL (0.67-1.17); Globulin 2.1 g/dL (2-4); Potassium 5.1 mmol/L (3.5-5.0); Total Bilirubin 2.4 mg/dL (0.2-1.0); Total Protein 5.3 g/dL (6.4-8.9); eGFR CKD-EPI 51.4 (>60)
[2023-12-20 08:36] LABS: High Sensitivity Troponin 1 Hr 11 pg/mL (<20)
[2023-12-20] MEDS: Iodixanol (CONTRAST) 320 MG/ML 100 ML SDV IV ONE (08:57)
[2023-12-20] MEDS: Prochlorperazine 5 mg/ml 2 ml VIAL (10 mg) IV ONE (09:00)
[2023-12-20] MEDS: Morphine 4 MG/ML VIAL (1 ml) IV ONE (09:00)
[2023-12-20] MEDS: NS 0.9% 1000 ml BAG 1,000 ML IV ONE (10:04)
[2023-12-20 11:06] LABS: TSH Ultra Thyroid Stim Horm 23.76 mcIU/mL (0.34-5.60)
[2023-12-20 11:17] LABS: Folate 16.56 ng/mL (5.90-24.80)
[2023-12-20 11:20] LABS: Osmolality Serum 272 mOsm/kg (275-295)
[2023-12-20 11:51] LABS: Urine Appearance Clear; Urine Bacteria Absent /HPF (Absent); Urine Bilirubin Negative (Negative); Urine Blood Negative (Negative); Urine Color Yellow; Urine Glucose Negative (Negative); Urine Ketones Negative (Negative); Urine Nitrite Negative (Negative); Urine Protein Trace (Negative); Urine Red Blood Cell Trace(0-2/hpf) /HPF (0-Trace); Urine Specific Gravity >1.050 (1.002-1.030); Urine Squamous Epithelial Cell Present /HPF (Absent); Urine Urobilinogen Negative (Negative); Urine White Blood Cell Trace(0-5/hpf) /HPF (0-Trace)
[2023-12-20 12:43] LABS: Urine Osmo 422 mOsm/kg (150-1150)
[2023-12-20 15:52] LABS: Calcium 10.1 mg/dL (8.6-10.3); Creatinine, Serum 1.26 mg/dL (0.67-1.17); Magnesium 2.2 mg/dL (1.9-2.7); Potassium 5.3 mmol/L (3.5-5.0); eGFR CKD-EPI 54.9 (>60)
[2023-12-20] MEDS: Sulfur Hexaflouride MICROSPHR 25 MG VIAL IV PRN (16:15)
[2023-12-20] MEDS ORDERED: Sulfur Hexaflouride MICROSPHR 25 MG VIAL ONE (16:36)
[2023-12-20] MEDS: Morphine ORAL CONCENTRATE 5 MG/0.25 ML ORAL.SYRIN PO PRN (17:18)
[2023-12-20] MEDS: NS 0.9% 1000 ml BAG 1,000 ML IV SCH (18:38)
[2023-12-20] MEDS: [UNRECOGNIZED DRUG - REMARK] PO SCH (20:33)
[2023-12-20] MEDS: Morphine ER 15 mg TAB ** extended release PO SCH (20:43)
[2023-12-20] MEDS: Senna TAB 8.6 mg TAB PO PRN (20:44)
[2023-12-20] MEDS: Latanoprost 0.005% 2.5 ml BTL BOTH EYES SCH (20:58)
[2023-12-20 21:03] LABS: Calcium 9.6 mg/dL (8.6-10.3); Creatinine, Serum 1.37 mg/dL (0.67-1.17); Magnesium 2.1 mg/dL (1.9-2.7); Potassium 5.2 mmol/L (3.5-5.0); eGFR CKD-EPI 49.6 (>60)
[2023-12-20] MEDS: Ondansetron 4 mg VIAL 2 MG/ML 2 ml VIAL IV PRN (23:15)
[2023-12-21 06:55] LABS: ABS Eosinophils 0.1 10^3/uL (0.0-0.5); ABS Lymphocytes 0.9 10^3/uL (1.0-4.8); ABS Monocytes 0.7 10^3/uL (0.0-1.1); ABS Neutrophils 3.1 10^3/uL (1.5-7.6); Eosinophil % 1.1 %; Hematocrit 30.3 % (38-53); Hemoglobin 10.7 g/dL (13.2-16.3); Lymphocyte % 19.2 %; Mean Corpuscular Hemoglobin 34.5 pg (27-33); Mean Corpuscular Hgb Conc 35.5 g/dL (31-36); Mean Corpuscular Volume 97.2 fL (80-97); Mean Platelet Volume 6.8 fL (7.5-11.2); Platelet Count 209 10^3/uL (150-450); Red Blood Count 3.11 10^6/uL (4.06-5.63); Red Cell Distribution Width 14.4 % (12-17); White Blood Count 4.8 10^3/uL (3.6-10.2)
[2023-12-21 07:15] LABS: Albumin 2.9 g/dL (3.2-5.2); Albumin/Globulin Ratio 1.6 (1-3); Calcium 8.9 mg/dL (8.6-10.3); Creatinine, Serum 1.18 mg/dL (0.67-1.17); Globulin 1.8 g/dL (2-4); Potassium 5.2 mmol/L (3.5-5.0); Total Bilirubin 2.1 mg/dL (0.2-1.0); Total Protein 4.7 g/dL (6.4-8.9); eGFR CKD-EPI 59.4 (>60)
[2023-12-21] MEDS: [UNRECOGNIZED DRUG - REMARK] PO SCH (10:46)
[2023-12-21] MEDS: Cholecalciferol (VIT D3) 1,000 unit TAB PO SCH (10:46)
[2023-12-21] MEDS: Timolol 0.5% OPTH.SOL BTL BOTH EYES SCH (10:48)
[2023-12-21] MEDS: Senna TAB 8.6 mg TAB PO SCH (10:48)
[2023-12-21] MEDS: Polyethylene Glycol 3350 17 GM PACKET PO SCH (10:48)
[2023-12-21] MEDS: NS 0.9% 1000 ml BAG 1,000 ML IV SCH (12:56)
[2023-12-21 18:44] LABS: Calcium 9.1 mg/dL (8.6-10.3); Creatinine, Serum 1.14 mg/dL (0.67-1.17); Potassium 5.2 mmol/L (3.5-5.0); eGFR CKD-EPI 61.9 (>60)
[2023-12-22] MEDS: NS 0.9% 1000 ml BAG 1,000 ML IV SCH (02:06)
[2023-12-22 06:35] LABS: ABS Monocytes 0.8 10^3/uL (0.0-1.1); ABS Neutrophils 3.4 10^3/uL (1.5-7.6); Eosinophil % 0.9 %; Hematocrit 31.7 % (38-53); Hemoglobin 11.1 g/dL (13.2-16.3); Lymphocyte % 19.8 %; Mean Corpuscular Hemoglobin 34.1 pg (27-33); Mean Corpuscular Hgb Conc 35.1 g/dL (31-36); Mean Corpuscular Volume 97.1 fL (80-97); Mean Platelet Volume 6.8 fL (7.5-11.2); Nucleated Red Blood Cells % 0.1 %/100WBC (0.0-0.8); Platelet Count 231 10^3/uL (150-450); Red Blood Count 3.27 10^6/uL (4.06-5.63); Red Cell Distribution Width 14.5 % (12-17); White Blood Count 5.3 10^3/uL (3.6-10.2)
[2023-12-22 06:47] LABS: Albumin 2.9 g/dL (3.2-5.2); Albumin/Globulin Ratio 1.6 (1-3); Calcium 8.8 mg/dL (8.6-10.3); Creatinine, Serum 1.23 mg/dL (0.67-1.17); Globulin 1.8 g/dL (2-4); Potassium 5.4 mmol/L (3.5-5.0); Total Bilirubin 2.2 mg/dL (0.2-1.0); Total Protein 4.7 g/dL (6.4-8.9); eGFR CKD-EPI 56.5 (>60)
[2023-12-22] MEDS: SODIUM ZIRCONIUM CYCLOSILICATE 10 GM PACKET PO SCH (14:31)
[2023-12-22] MEDS: Morphine ORAL CONCENTRATE 5 MG/0.25 ML ORAL.SYRIN PO PRN (16:58)
[2023-12-22] MEDS ORDERED: Zosyn per Pharmacy NOTE FOLLOW UP SCH (19:00)
[2023-12-22 21:53] LABS: Urine Appearance Clear; Urine Bilirubin Negative (Negative); Urine Blood Negative (Negative); Urine Color Yellow; Urine Glucose Negative (Negative); Urine Ketones Trace (Negative); Urine Nitrite Negative (Negative); Urine Protein Negative (Negative); Urine Specific Gravity 1.013 (1.002-1.030); Urine Urobilinogen Negative (Negative); Urine pH 5.5 (5.0-8.0)
[2023-12-22 22:48] VITALS: BP 130/65
[2023-12-22] MEDS: Piperacillin/Tazobac 3.375 BAG 3.375 GM/100 ML BAG IV ONE (22:53)
[2023-12-23] MEDS: ZOSYN 3.375 GM Q8H per EXTENDED INFUSION IV SCH (04:03)
[2023-12-24] MEDS: Morphine ORAL CONCENTRATE 5 MG/0.25 ML ORAL.SYRIN PO PRN ×2 (10:36→15:36)
[2023-12-25] MEDS ORDERED: Calamine LOTION BTL TOPICAL PRN (09:57)
[2023-12-26] MEDS: Morphine ORAL CONCENTRATE 5 MG/0.25 ML ORAL.SYRIN PO SCH (19:57)
[2023-12-27] MEDS: Morphine ORAL CONCENTRATE 5 MG/0.25 ML ORAL.SYRIN SL SCH ×2 (08:29→16:44)
[2023-12-27] MEDS: Morphine ORAL CONCENTRATE 5 MG/0.25 ML ORAL.SYRIN SL PRN (14:02)
[2023-12-27] MEDS: Dexamethasone IV 4 MG/ML VIAL 1 ml VIAL IV SLOW PU ONE (20:35)
[2023-12-28] MEDS: Dexamethasone IV 4 MG/ML VIAL 1 ml VIAL IV SLOW PU ONE (14:13)
[2023-12-28] MEDS ORDERED: Lidocaine 2.5%/Prilocain 2.5% 5 GM TUBE TOPICAL PRN (14:17)
[2023-12-28] MEDS ORDERED: Lidocaine 2.5%/Prilocain 2.5% 5 GM TUBE TOPICAL SCH (15:00)
[2023-12-28] MEDS ORDERED: Benzocaine/Menthol LOZ PO PRN (21:16)
[2023-12-28] MEDS: guaiFENesin/CODIENE 100mg/10mg 5 ML UDC PO PRN (21:26)
[2023-12-29] MEDS: Atropine 1% (ORAL/SL) 15 ML BTL SL PRN (00:14)
[2023-12-29] MEDS: fentaNYL PATCH 25 MCG/HR 1 PATCH TRANSDERM SCH (15:22)
[2023-12-29] MEDS ORDERED: Morphine 10 MG/ML VIAL (1 mL) 100 MG in NS 0.9% 100 ml BAG 90 ML IV SCH (19:00)
[2023-12-29] MEDS: fentaNYL Patch Check Q Shift NOTE FOLLOW UP SCH (19:38)
[2023-12-29] MEDS ORDERED: Naloxone 0.4 mg VIAL 0.4 mg/ml 1 ml VIAL IV PUSH PRN (19:50)
[2023-12-29] MEDS ORDERED: Morphine PCA ADULT 5 MG/ML 30 ML PCA SCH (20:00)
[2023-12-29] MEDS: Senna TAB 8.6 mg TAB PO SCH (22:05)
[2023-12-30] MEDS ORDERED: LORazepam 2 mg VIAL 1 ml IV PUSH PRN (10:39)
[2023-12-31] MEDS ORDERED: Acetaminophen IV 1 GM/100ML 1,000 MG/100 ML BAG IV PRN (11:03)
[2023-12-31] MEDS: Scopolamine 1 mg/72hr PATCH TRANSDERM SCH (12:31)
== END 2023-12-31 21:55 | disposition expired | DRG 641 ==
LOC: EDHOLD 05:37 → ED 05:37 → SUATTDRO 10:21 → EDHOLD 11:20 → MED 15:32
PROVIDERS: ADMIT Internal Medicine; ATTEND Internal Medicine